=== PATIENT | female | born 1985 | race African-American/Black ===

== ENCOUNTER → 2019-08-10 08:07 | Outpatient (CLI) | payer MEDICAID, SELFPAY ==
--- NOTE | 2019-08-10 08:11 | XR_ITS ---
PROCEDURE: XR KNEE LT 4V CLINICAL INDICATION: B/L knee pain COMPARISON: No exams were available for comparison FINDINGS: No fracture or dislocation. No lytic or blastic change. There is normal mineralization. There are moderate to severe osteoarthritic changes involving the lateral compartment with mild lateral translation the tibia. Mild osteoarthritis involves the patellofemoral joint and medial compartment. Other findings:None. IMPRESSION: Moderate to severe osteoarthritis of the lateral compartment with mild osteoarthritis of the medial compartment and patellofemoral joint Dictated by: Suman Le MD 08/10/2019 12:33 Electronically signed by Suman Le MD in [place] 08/10/2019 12:33
--- NOTE | 2019-08-10 08:11 | XR_ITS ---
PROCEDURE: XR KNEE RT 4V CLINICAL INDICATION: B/L knee pain COMPARISON: No exams were available for comparison FINDINGS: No fracture or dislocation. No lytic or blastic change. There is normal mineralization. The joint spaces are well-preserved. No significant degenerative/arthritic changes. No erosive changes evident. Other findings:None. IMPRESSION: Negative right knee Dictated by: Suman Le MD 08/10/2019 12:32 Electronically signed by Suman Le MD in [place] 08/10/2019 12:32
== END ==
PROVIDERS: Visit Provider Orthopaedic Surgery
DX: M25.561 Pain in right knee (principal); M25.562 Pain in left knee
CPT/HCPCS: 73564

== ENCOUNTER 2020-03-14 01:47 | Observation (INO) | payer MEDICAID, SELFPAY ==
[2020-03-14] VITALS (27 sets, daily range): BP systolic 97–162; BP diastolic 64–98; PULSE 86–118; RESP 13–24; TEMP 36.3–43; O2SAT 95–100; BMI 32.4
--- NOTE | 2020-03-14 01:48 | PC.NURSE ---
Pt presents with sever abd pain refuses IV and refuses to Urinate
--- NOTE | 2020-03-14 02:12 | PC.NURSE ---
Pt came out of room screaming and cussing staff, stating he is going to koffi everyone and he is going to record everything we do, I explained to him we want to help, but it would be easier if we had an IV and a Urine, became very argumentive. Jasbir (Jemal) called to speak with pt and family
--- NOTE | 2020-03-14 02:14 | PC.NURSE ---
After House spoke with pt and they agreed to IV and request a martinez for urine
[2020-03-14 02:28] LABS: Basophils # 0.1 K/mm3 (0-0.2); Basophils % 0.6 % (0.1-2.0); Eosinophils # 0.1 K/mm3 (0.0-0.4); Eosinophils % 0.6 % (0.1-12.0); Hemoglobin 14.3 g/dL (12.2-16.2); Lymphocytes # 2.7 K/mm3 (0.7-4.5); Lymphocytes % 22.8 % (10-50); Mean Corpuscular HGB Conc 34.1 g/dL (31.8-35.4); Mean Corpuscular Hemoglobin 31.7 pg (27.0-31.2); Monocytes # 0.5 K/mm3 (0.1-1.0); Monocytes % 4.6 % (1.7-9.3); Neutrophils # 8.4 K/mm3 (1.8-7.8); Neutrophils % 71.5 % (37.0-80.0); Platelet Count 411 K/mm3 (142-424); Red Blood Count 4.51 M/mm3 (4.20-5.40); Red Cell Distribution Width 13.5 % (11.5-17.5); White Blood Count 11.7 K/mm3 (4.8-10.8)
[2020-03-14 02:32] LABS: Alanine Aminotransferase 68 U/L (12-78); Albumin/Globulin Ratio 1.4 (1.1-1.8); Alkaline Phosphatase 75 U/L (38-126); Amylase 45 U/L (30-110); Anion Gap 15.9 mEq/L (5-15); Aspartate Amino Transferase 64 U/L (14-36); Blood Urea Nitrogen 7 mg/dl (7-17); Calcium 10.6 mg/dl (8.4-10.2); Carbon Dioxide 24 mmol/L (22.0-30.0); Chloride 101 mmol/L (98-107); Creatinine Clearance Estimated 124 mL/min (50-200); Estimated Glomerular Filt Rate 72 ml/min (>60); GFR (African American) 87 ML/MIN (>60); Globulin 3.5 g/dL (1.3-3.2); Glucose 190 mg/dl (74-100); Lipase 47 U/L (23-300); Potassium 3.9 mmoL/L (3.5-5.1); Sodium 137 mmol/L (136-145); Total Protein,Serum 8.5 g/dl (6.3-8.2)
[2020-03-14 02:39] LABS: HCG Qualitative, Serum Positive (Negative)
--- NOTE | 2020-03-14 02:50 | US_ITS ---
PROCEDURE: US OB TRANSVAGINAL CLINICAL INDICATION: Pos preg with abd pain COMPARISON: No exams were available for comparison FINDINGS: No IUP is demonstrated. Uterus measures 7 9 millimeters x 44 millimeters x 38 millimeters. Endometrium measures a thickened 9.3 centimeters. The left ovary measures 39 millimeters x 22 millimeters x 31 millimeters. Right ovary measures 40 millimeters x 23 mm x 17 millimeters. There is a moderate amount of free echogenic fluid within the pelvis. Some fluid is seen in Morison's pouch IMPRESSION: Moderate amount of free pelvic fluid which may represent hemorrhage. Ruptured ectopic cannot be excluded Dictated by: Jey Cano 03/14/2020 08:22 Electronically signed by Jey Cano in [place] 03/14/2020 08:22
--- NOTE | 2020-03-14 03:10 | HMH.EDUROGF ---
ED Disposition Clinical Impression: Ectopic , tubal Qualifiers: Intrauterine status: unspecified Laterality: right Qualified Code(s): O00.101 - Right tubal without intrauterine Disposition: Admitted as Observation Condition on Discharge: Serious Instructions: DI for Acute Abdomen Referrals: Provider,Referral, [Primary Care Provider] - - Critical Care Critical Care Time: No Attestation: On 03/14/20, the high probability of a clinically significant, sudden or life threatening deterioration of the following system(s) required my full and direct attention, intervention and personal management. The time I documented below is in addition to time spent performing reported procedures but includes the following listed in this critical care notation. Medical Decision Making - Medical Records Medical records reviewed: Yes: I reviewed the patient's medical records. - Sky Inquiry Pt receiving controlled substance: No Vital Signs: 03/14/20 01:49 Temperature 98.1 F Temperature Source Oral Pulse Rate [Right] 109 H Respiratory Rate 20 Blood Pressure [Right Arm] 162/98 H Blood Pressure Mean [Right Arm] 119 Blood Pressure Source [Right Arm] Automatic Cuff Blood Pressure Position [Right Arm] Sitting 02 Sat by Pulse Oximetry 99 Oxygen Delivery Method Room Air - Lab Data Lab results reviewed: Yes: I reviewed the patient's lab results. Lab Results 03/14/20 02:10: Serum HCG, Qual Positive 03/14/20 02:10: WBC 11.7 H, RBC 4.51, Hgb 14.3, Hct 42.0, MCV 93.0, MCH 31.7 H, MCHC 34.1, RDW 13.5, Plt Count 411, MPV 7.0 L, Neut % (Auto) 71.5, Lymph % (Auto) 22.8, [place] % (Auto) 4.6, Eos % (Auto) 0.6, Baso % (Auto) 0.6, Neut # (Auto) 8.4 H, Lymph # (Auto) 2.7, [place] # (Auto) 0.5, Eos # (Auto) 0.1, Baso # (Auto) 0.1, ESR 9 03/14/20 02:10: Sodium 137, Potassium 3.9, Chloride 101, Carbon Dioxide 24, Anion Gap 15.9 H, BUN 7, Creatinine 0.90, Estimated Creat Clear 124, Estimated GFR 72, Est GFR ( Amer) 87, Glucose 190 H, Calcium 10.6 H, Total Bilirubin 1.0, AST 64 H, ALT 68, Alkaline Phosphatase 75, C-Reactive Protein 10.0 H, Total Protein 8.5 H, Albumin 5.0, Globulin 3.5 H, Albumin/Globulin Ratio 1.4, Amylase 45, Lipase 47 03/14/20 02:10: HCG, Quant 2483 H Result diagrams: 03/14/20 02:10 03/14/20 02:10 Orders (Tests/Meds): ED MEDICATIONS Generic Name Dose Route Start Last Admin Trade Name Freq PRN Reason Stop Dose Admin Sodium Chloride 1,000 mls @ 999 mls/hr 03/14/20 02:30 03/14/20 02:52 Sod Chlor 0.9% 1000ml Bag IV 03/14/20 03:30 999 mls/hr .Q1H1M RENEE Administration Discontinued Medications Generic Name Dose Route Start Last Admin Trade Name Freq PRN Reason Stop Dose Admin Ketorolac Tromethamine 30 mg 03/14/20 02:21 03/14/20 03:16 Toradol 30mg/Ml Vial IV 03/14/20 02:22 Not Given ONCE ONE Ondansetron HCl 4 mg 03/14/20 02:21 03/14/20 03:16 Zofran 4mg/2ml Vial IV 03/14/20 02:22 Not Given ONCE ONE ORDERS Category Date Time Status UA [Urinalysis and Microscopic] Stat Lab 03/14/20 03:11 Ordered US OB transvaginal Stat Ultrasound 03/14/20 02:50 Ordered - US Data US Images: Pelvis ED US Reviewed: Yes: I discussed the US results w/the radiologist Findings Narrative: prob ruptured ectopic rt - Physician Consults Physician Consulted: fabricio Reason -: Pt condition Female Urogenital HPI - General Chief complaint: Abdominal Pain Stated complaint: Abd Pain Time Seen by Provider: 03/14/20 02:00 Mode of Arrival: Wheelchair Source of Information: Patient, Spouse, Medical Record Limitations: No Limitations Description of Symptoms (Recalled from ER Triage Doc. by RN): Pt states she has sever abd pain in all quads, denies bleeding and discharge, states she had a tubal preg in past and they removed left fallopian tube and feels like she is having another - History of Present Illness HPI Narrative: pt with acute pelvic pain with
[2020-03-14 03:15] LABS: HCG,Quantitative 2483 mIU/ml (0-5.42)
--- NOTE | 2020-03-14 03:16 | PC.NURSE ---
I explained to pt that we got a positive test and we will be getting a U.S. Pt states she doesn't want any Narcotics because she is a recovering drug addict
[2020-03-14 03:25] LABS: Erythrocyte Sedimentation Rate 9 mm/hr (0-20)
--- NOTE | 2020-03-14 03:51 | PC.NURSE ---
Dr Vega consulting Dr Del Cid
--- NOTE | 2020-03-14 04:14 | PC.NURSE ---
was instructed to call anesthesia and or crew in for this pt...JEFFRY LINN,LISSA GUTIERREZ,AND ADI MÉNDEZ were notified.
--- NOTE | 2020-03-14 04:35 | PC.NURSE ---
Pt informed she needs to remove jewelry, Pt not wanting to remove jewelry for OR
--- NOTE | 2020-03-14 04:38 | PC.NURSE ---
Dr Del Cid at bedside
--- NOTE | 2020-03-14 04:56 | HMH.HP ---
*Admission Date: 03/14/20 *Chief complaint: abdominal pain *History of present illness: 34 yo presented to the ED with acute onset of severe abdominal pain. HCG positive upon assessment but patient was unaware of current . [facility] History I have reviewed the patient's past medical history: Yes Medical History: Reports:: Hepatitis (hep c) Denies:: Diabetes Mellitus Type 1, Diabetes Mellitus Type 2 *Have you ever received a pneumonia vaccine?: No *Have you received a flu vaccine this season?: No Other Surgeries: Yes: Other (left salpingectomy ectopic ) - *Social History Educational Level: Attended High School Smoking Status: Current every day smoker Tobacco Type: cigarettes # Packs/Day (cigarettes): 1 Alcohol Intake: never Substance Use Type: marijuana Last Used Substance: unknown *Occupational Status:: unemployed Housing: house *Travel in the last 8 weeks: None Family Hx:: No significant family history : 4 Para: 1 A: 2 LMP comments: unsure Review of Systems - Review of Systems CONSTITUTIONAL: no fever/chills HEENT: no oral lesions PULMONARY: no shortness of breath or difficulty breathing CV: no racing heart, palpitations or chest pain ABD: + abdominal pain : lochia appropriate SKIN: no new rash or skin lesions EXT: no edema NEURO: no mental status changes PSYCH: denies current anxiety/depression - *Neurologic Denies localized weakness, Denies headache(s), Denies seizure-like activity Meds Home Medications Medication Instructions Recorded Confirmed Type No Known Home Medications 03/14/20 03/14/20 History Allergies Allergy/AdvReac Type Severity Reaction Status Date / Time iodine Allergy Verified 03/14/20 05:01 From ALEVE Allergy Unknown S-SWELLS-OR Uncoded 08/10/19 08:55 AL/THROAT From Penicillin G Sodium Allergy Unknown Uncoded 08/10/19 08:55 Penicillin Allergy Unknown Uncoded 08/10/19 08:55 Exam Vital signs and Labs for Last 24 Hours: Temp Pulse Resp BP Pulse Ox 98.6 F 104 H 16 108/72 L 99 03/14/20 04:52 03/14/20 04:52 03/14/20 04:52 03/14/20 04:52 03/14/20 04:05 Laboratory Results - last 24 hr 03/14/20 02:10: Serum HCG, Qual Positive 03/14/20 02:10: WBC 11.7 H, RBC 4.51, Hgb 14.3, Hct 42.0, MCV 93.0, MCH 31.7 H, MCHC 34.1, RDW 13.5, Plt Count 411, MPV 7.0 L, Neut % (Auto) 71.5, Lymph % (Auto) 22.8, [place] % (Auto) 4.6, Eos % (Auto) 0.6, Baso % (Auto) 0.6, Neut # (Auto) 8.4 H, Lymph # (Auto) 2.7, [place] # (Auto) 0.5, Eos # (Auto) 0.1, Baso # (Auto) 0.1, ESR 9 03/14/20 02:10: Sodium 137, Potassium 3.9, Chloride 101, Carbon Dioxide 24, Anion Gap 15.9 H, BUN 7, Creatinine 0.90, Estimated Creat Clear 124, Estimated GFR 72, Est GFR ( Amer) 87, Glucose 190 H, Calcium 10.6 H, Total Bilirubin 1.0, AST 64 H, ALT 68, Alkaline Phosphatase 75, C-Reactive Protein 10.0 H, Total Protein 8.5 H, Albumin 5.0, Globulin 3.5 H, Albumin/Globulin Ratio 1.4, Amylase 45, Lipase 47 03/14/20 02:10: HCG, Quant 2483 H 03/14/20 04:25: Crossmatch (AHG) See Detail I & O for Last 24 hours: Intake & Output 03/11/20 03/12/20 03/13/20 03/14/20 11:59 11:59 11:59 11:59 Intake Total 1000 / 1000 Balance 1000 / 1000 Weight 195 lb Narrative: CONSTITUTIONAL: visibly uncomfortable HEENT: mucous membranes moist PULMONARY: breathing unlabored without audible wheezes CV: + tachycardia; normal LE peripheral pulses ABD: soft, non-distended. + tender : deferred SKIN: no visible rash or lesions HEME: no lymphadenopathy EXT: no edema LEs NEURO: alert/oriented, no altered mental status PSYCH: anxious Assessment and Plan (1) Ectopic , tubal Current visit: Yes Status: Acute Qualifiers: Intrauterine status: unspecified Laterality: right Qualified Code(s): O00.101 - Right tubal without intrauterine Category: Medical Code(s): O00.109 - Unspecified tubal without intra
[2020-03-14 05:34] LABS: Microscopic, Urine URINE MICROSCOPIC (MICROSCOPIC)
[2020-03-14 05:36] LABS: Appearance,Urine CLEAR (Clear); Blood, Urine Negative (Negative); Glucose,Urine (UA) Negative (Negative); Ketones,Urine 1+ (Negative); Leukocyte Esterase,Urine Negative (Negative); Nitrate,Urine Negative (Negative); Protein,Urine TRACE (Negative); Specific Gravity, Urine >= 1.030 (1.005-1.030)
[2020-03-14 05:40] LABS: Bilirubin,Urine Negative (Negative); Color,Urine Dark Yellow (Yellow)
[2020-03-14 05:55] LABS: Bacteria,Urine 1+ /lpf; Mucus,Urine 1+ /lpf
[2020-03-14 06:06] LABS: Barbiturates Screen,Urine Negative ng/ml (<200); Benzodiazepines Screen,Urine Negative ng/ml (<200); Cannabinoid Screen,Urine Positive ng/ml (<50); Cocaine Screen,Urine Negative ng/ml (<300); Methadone Screen,Urine Negative ng/ml (<300); Opiate Screen,Urine Positive ng/ml (<300); Phencyclidine Screen,Urine Negative ng/ml (<25)
--- NOTE | 2020-03-14 06:12 | SUR.OPER ---
0455- unpon entering or pt has 3 facial piercings in. Pt explained in detail the risk for page/ aspiration. Pt states that piercings do not come out except with pliers. Pt understands risks.
--- NOTE | 2020-03-14 07:24 | HMH.ANESCL ---
[facility] Anesthesia Checklist - Patient Identification Patient Identification: Arm Band, Verbal (Name & ) - Structural Data Admitted From: Emergency Dept Planned Operative Procedure/s: Diagnostic laparoscopy Consent for Planned Operative Procedure(s) Verified: Yes Verified Documents: Surgical Consent, History and Physical - NPO Status Verified Time NPO: 00:00 - Chart Verification Results Verified: CBC, BMP, UA (UDS), HCG - Additional verifications Patient : Yes Anesthesia Reactions: No - Airway Assessment C-Spine Mobility Assessed: Yes TMJ Mobility Assessed: Yes Dentition: Good Dentition (missing tooth) - Neurological Assessment Level of Consciousness: Awake, Alert, Appropriate, Follows Commands, Restless Hx Seizures: No Numbness or tingling in extremities: No - Anesthesia Plan Anesthesia Risk discussed: Yes Anesthesia Plan: Verified ASA Class: III (Emergent) Anesthesia Type: General [facility] History I have reviewed the patient's past medical history: Yes Medical History: Reports:: Hepatitis (hep c) Denies:: Diabetes Mellitus Type 1, Diabetes Mellitus Type 2 *Have you ever received a pneumonia vaccine?: No *Have you received a flu vaccine this season?: No Comment:: obesity Anesthesia experience/problems:: No complications Other Surgeries: Yes: Other (left salpingectomy ectopic ) Amputation: No Fractures: No - *Social History Educational Level: Attended High School Smoking Status: Current every day smoker Tobacco Type: cigarettes # Packs/Day (cigarettes): 1 Alcohol Intake: never Substance Use Type: marijuana Last Used Substance: unknown *Occupational Status:: unemployed Housing: house *Travel in the last 8 weeks: None Family Hx:: No significant family history Para: 1 A: 2 LMP comments: unsure
--- NOTE | 2020-03-14 07:27 | HMH.ANESI ---
[facility] Anesthesia Record Part I Intake, IV Amount: 1,600 Estimated blood loss (mL): 800 Urine output (mL): 0 (NM) Blood Products used (#): none Blood Pressure: 161/82 SaO2: 96 Pulse Rate: 104 Respiratory Rate: 22 Temperature: 97.3 F Patient is:: Awake, Drowsy, Stable Stable to PACU at:: 07:17
--- NOTE | 2020-03-14 07:34 | HMH.OPNOTE ---
Date of procedure: 03/14/20 Pre-op Diagnosis:: 1. Large hemoperitoneum 2. Suspected ectopic 3. Previous ectopic Post-op Diagnosis:: 1. Large hemoperitoneum 2. Ruptured ectopic left fallopian tube 3. Pelvic adhesions Procedure performed:: 1. Diagnostic laparoscopy 2. Ligation of left fallopian tube 3. Lysis of adhesions Surgeon:: Carlie Del Cid MD FRIT MIXER:: Bennett Knight Anesthesia: GETA Estimated blood loss (mL): 800 Operative findings:: Large hemoperitoneum Active bleeding from promimal left fallopian tube at junction to uterus Pelvic adhesions Absent right fallopian tube Operative note:: The patient was taken to the operating room and general anesthesia was administered. She was prepped/draped in lithotomy position. A Humi uterine manipulator was placed without difficulty. Gloves were changed and attention was turned to the abdomen. A 5mm skin incision was made in the umbilical fold and the verees needle was inserted through the peritoneum and into the abdominal cavity in standard fashion. The abdomen was insufflated with CO2 gas. A 5mm non-bladed trocar was inserted directly into the abdominal cavity and appropriate placement was confirmed with the laparoscope. No intra-abdominal injuries occurred during entry into the abdominal cavity, as confirmed visually with the laparoscope. Initial assessent of the abdomen/pelvis revealed a large amount of hemoperitoneum but the source of the bleeding was not immediately apparent. The patient was placed in trendelenburg and a 12mm skin incision was made 2cm above the pubic symphysis. A 12mm non-bladed trocar was inserted under direct visualization, without complication. A survey of the pelvis and abdomen revealed a moderate/large amount of hemoperitoneum, both clot and active bleeding. Suction was used to evacuate the blood and the uterus was elevated out of the pelvis to better visualize the anatomy. A 5mm skin incision was made in the left lower quadrant and a non-bladed trocar was inserted under direct visualization, without complication. The ovaries both appeared normal. The right fallopian tube was absent. A small stump of left fallopian tube was actively bleeding at it's connection to the uterine fundus, but was completely from the remainder of the tube. The distal end of the fallopian tube was not bleeding and did not appear to be involved in the rupture, indicating a previous left salpingectomy with the ectopic in the proximal portion of the tube. The harmonic scalpel was used to ligate and cauterize the bleeding from the proximal fallopian tube. There was bleeding from the uterus as well and required ligation through the round ligament and broad ligament to stop this bleeding. Adhesions from omentum to the right fundus of the uterus were then taken down sharply in order to assess the anatomy on the right side. The right ovary appeared normal but there was no right fallopian tube present. The abdomen and pelvis were copiously irrigated and all clot/debris removed. The left pedicle was observed off tension and remained hemostatic. Surgicel was placed over the denuded portion of the uterine fundus on the left. The abdomen was then evacuated of gas and all trocars removed. The fascia of the 12mm suprapubic incision was closed with 0-vicryl and the skin was closed with 4-0 monocryl. The umbilical and RLQ skin incisions were closed with dermabond. All sponge/lap/needle/instrument counts correct for both abdominal and vaginal procedures. Total EBL: 800cc. The patient was taken out of lithotomy position, extubated and taken to the PACU in stable condition. Condition: stable Disposition: PACU Specimens:: none Complications:: none
[2020-03-14 07:56] LABS: Basophils % 0.1 % (0.1-2.0); Eosinophils # 0.1 K/mm3 (0.0-0.4); Eosinophils % 0.9 % (0.1-12.0); Hematocrit 35.3 % (37.0-47.0); Lymphocytes # 0.8 K/mm3 (0.7-4.5); Lymphocytes % 9.4 % (10-50); Mean Corpuscular Hemoglobin 31.3 pg (27.0-31.2); Mean Corpuscular Volume 94.8 fl (81-99); Mean Platelet Volume 7.1 fl (7.4-10.4); Monocytes # 0.2 K/mm3 (0.1-1.0); Monocytes % 2.7 % (1.7-9.3); Neutrophils # 7.4 K/mm3 (1.8-7.8); Platelet Count 303 K/mm3 (142-424); Red Blood Count 3.72 M/mm3 (4.20-5.40); Red Cell Distribution Width 13.5 % (11.5-17.5); White Blood Count 8.5 K/mm3 (4.8-10.8)
[2020-03-14 08:01] LABS: MANUAL DIFFERENTIAL MANUAL DIFFERENTIAL (MANUAL DIFF)
[2020-03-14 08:40] LABS: Lymphocytes % 10 % (10-50); Monocytes % 3 % (2-9); Neutrophils % 87 % (42-76); Platelet Estimate Normal; RBC Morphology Normal; Total Cells Counted 100
[2020-03-14 08:42] LABS: Hemoglobin 11.7 g/dL (12.2-16.2)
--- NOTE | 2020-03-14 11:31 | PC.NURSE ---
PT AWAKE AT THIS TIME. REQUESTING TO EAT. JELLO PROVIDED. CALL LIGHT WITHIN REACH. PT SITTING UP IN BED WATCHING TV TALKING WITH SPOUSE, NO FURTHER NEEDS AT THIS TIME
--- NOTE | 2020-03-14 11:55 | PC.NURSE ---
dr. regalado in dept to see pt, updated at this time. vital signs reviewed. at bedside at this time
--- NOTE | 2020-03-14 12:06 | PC.NURSE ---
DR. ZHAO ROUNDED ON PT, ASSESSMENT COMPLETED, WILL DISCHARGE PT HOME LATER AFTER 1500 H&H. VERBAL ORDER FOR REGULAR DIET. QUESTIONS ANSWERED BY DR. ZHAO. PT V/U
--- NOTE | 2020-03-14 13:17 | HMH.DCSUM ---
General - General Admission date:: 03/14/20 Discharge date: 03/14/20 HPI HPI: 34 yo presented to the ED with acute onset of severe abdominal pain. HCG positive upon assessment but patient was unaware of current . Hospital Course Hospital Course: The patient was evaluated in the ED with acute abdominal pain and positive test. Ultrasound showed large amount of hemoperitoneum and she was taken to the OR for presumed ruptured ectopic . She had a laparoscopic ligation of left fallopian tube and lysis of adhesions which was uncomplicated. She was admitted for short term observation and serial labs in the context of such a significant blood loss. Hgb stable 11.3 and vital signs are stable. Rhogam Administration: Not Indicated Objective Vital signs: Temp Pulse Resp BP Pulse Ox 98.1 F 96 H 17 137/67 100 03/14/20 12:15 03/14/20 12:15 03/14/20 12:15 03/14/20 12:15 03/14/20 12:15 Narrative: CONSTITUTIONAL: no acute distress HEENT: mucous membranes moist PULMONARY: breathing unlabored without audible wheezes CV: no tachycardia or visible JVD; normal LE peripheral pulses ABD: soft, ND; appropriately tender but no rebound/guarding SKIN: incision well approximated with no drainage, erythema or induration EXT: no edema LEs NEURO: alert/oriented, no altered mental status PSYCH: appropriate mood and demeanor without anxiety/depression Results Labs on day of discharge: Labs from last 24 hours 03/14/20 03/14/20 03/14/20 07:45 07:45 05:05 WBC 8.5 D RBC 3.72 L Hgb 11.7 L D Hct 35.3 L MCV 94.8 MCH 31.3 H MCHC 33.0 RDW 13.5 Plt Count 303 D MPV 7.1 L Neut % (Auto) 87.0 H Lymph % (Auto) 9.4 L [place] % (Auto) 2.7 Eos % (Auto) 0.9 Baso % (Auto) 0.1 Neut # (Auto) 7.4 Lymph # (Auto) 0.8 [place] # (Auto) 0.2 Eos # (Auto) 0.1 Baso # (Auto) 0.0 Total Counted 100 Neutrophils % (Manual) 87 H Lymphocytes % (Manual) 10 Monocytes % (Manual) 3 Platelet Estimate Normal RBC Morphology Normal ESR Sodium Potassium Chloride Carbon Dioxide Anion Gap BUN Creatinine Estimated Creat Clear Estimated GFR Est GFR ( Amer) Glucose Calcium Total Bilirubin AST ALT Alkaline Phosphatase C-Reactive Protein Total Protein Albumin Globulin Albumin/Globulin Ratio Amylase Lipase Serum HCG, Qual HCG, Quant Urine Color Urine Appearance Urine pH Ur Specific [place] Urine Protein Urine Glucose (UA) Urine Ketones Urine Blood Urine Nitrate Urine Bilirubin Urine Urobilinogen Ur Leukocyte Esterase Urine WBC Urine Bacteria Urine Mucus Urine Opiates Screen Positive H Urine Methadone Screen Negative Ur Barbituates Screen Negative Ur Phencyclidine Scrn Negative Ur Amphetamines Screen Therapeutic Assistant U Benzodiazepines Scrn Negative Urine Cocaine Screen Negative U Marijuana (THC) Screen Positive H Blood Type Blood Type Confirm O Positive Antibody Screen Crossmatch (AHG) 03/14/20 03/14/20 03/14/20 05:05 04:25 02:10 WBC RBC Hgb Hct MCV MCH MCHC RDW Plt Count MPV Neut % (Auto) Lymph % (Auto) [place] % (Auto) Eos % (Auto) Baso % (Auto) Neut # (Auto) Lymph # (Auto) [place] # (Auto) Eos # (Auto) Baso # (Auto) Total Counted Neutrophils % (Manual) Lymphocytes % (Manual) Monocytes % (Manual) Platelet Estimate RBC Morphology ESR Sodium Potassium Chloride Carbon Dioxide Anion Gap BUN Creatinine Estimated Creat Clear Estimated GFR Est GFR ( Amer) Glucose Calcium Total Bilirubin AST ALT Alkaline Phosphatase C-Reactive Protein Total Protein Albumin Globulin Albumin/Globul
--- NOTE | 2020-03-14 13:54 | PC.NURSE ---
pt assisted to bathroom and to shower at this time. assisted
[2020-03-14 15:24] LABS: Hematocrit 27.5 % (37.0-47.0)
[2020-03-14 15:31] LABS: Hemoglobin 9.6 g/dL (12.2-16.2)
--- NOTE | 2020-03-14 15:35 | PC.NURSE ---
H&H RESULTS REPORTED TO DR. ZHAO, UPDATED THAT PT HAS SHOWERED, TOLERATED REGULAR DIET, PAIN WELL CONTROLLED AND VSS. WAITING FOR PT TO VOID SINCE F/C REMOVED. PLAN TO DISCHARGE PT AFTER VOIDING. NO NEW ORDERS AT THIS TIME. PT TO FOLLOW-UP IN 1 WEEK
[2020-03-18 22:07] LABS: Amphetamine Positive (.); Amphetamines Positive (.); Methamphetamine Positive (.)
[2020-03-19 04:46] LABS: Amphetamine (GC/MS) 7330 ng/mL (Cutoff=500); Methamphetamine (GC/MS) >4000 ng/mL (Cutoff=500)
--- NOTE | 2020-03-19 09:49 | HMH.ANESII ---
[facility] Anesthesia Record Part II Discharge Time: 07:47 Destination: floor PACU nurse assessment reviewed?: Yes Patient Condition:: Good Anesthesia Complications:: None Swallowing reflex intact?: Yes Cyanosis?: No Blood Pressure: 123/75 Pulse Rate: 90 Temperature: 98.0 F Mental Status: Alert & Oriented Pain level:: 5 Nausea and/or vomitting:: None Intake, IV Amount: 1,000
[2020-03-19 09:50] VITALS: BP 123/75; PULSE 90; TEMP 36.7
== END 2020-03-14 16:10 | disposition home or self-care (01) ==
LOC: ER 04:08 → OR 04:47 → OB 07:00
PROVIDERS: Admitting Provider Obstetrics & Gynecology; Emergency Provider Emergency Medicine; Visit Provider Obstetrics & Gynecology
PROC: (CPT 49320; principal; 2020-03-14 05:30)
DX: O00.102 Left tubal pregnancy without intrauterine pregnancy (principal); B19.20 Unspecified viral hepatitis C without hepatic coma; K66.1 Hemoperitoneum
CPT/HCPCS: 59151; 36415; 76817; 80053; 80305; 80324; 81001; 82150; 83690; 84702; 84703; 85007; 85014; 85018; 85025; 85651; 86140; 86850; 96365; 96375; 99284; G0378; J0131; J2405; J2710

== ENCOUNTER 2020-04-14 14:25 | Emergency (ER) | payer MEDICAID, SELFPAY ==
[2020-04-14 14:54] VITALS: BP 116/83; PULSE 84; RESP 17; TEMP 36.7; O2SAT 100; BMI 32.4
[2020-04-14 15:05] VITALS: BP 116/83; PULSE 84; RESP 17; TEMP 36.7; O2SAT 100
--- NOTE | 2020-04-14 15:23 | PC.NURSE ---
PT TRANSPORTED [facility] TO [facility]ENT)
--- NOTE | 2020-04-14 15:36 | HMH.EDUTC ---
[facility] [place] Clinical Impression: Foreign body Disposition: Left Against Medical Advice Condition on Discharge: Good Referrals: PCP,No [Primary Care Provider] - Time of Disposition: 15:25 Medical Decision Making - Sky Inquiry Pt receiving controlled substance: No Vital Signs: 04/14/20 14:54 04/14/20 15:05 Temperature 98.1 F 98.1 F Temperature Source Oral Oral Pulse Rate 84 Pulse Rate [Left] 84 Respiratory Rate 17 17 Blood Pressure 116/83 Blood Pressure [Right Arm] 116/83 Blood Pressure Mean [Right Arm] 94 Blood Pressure Source [Right Arm] Automatic Cuff Blood Pressure Position Sitting Blood Pressure Position [Right Arm] Sitting 02 Sat by Pulse Oximetry 100 Oxygen Delivery Method Room Air - Physician Consults Physician Consulted: cortney Time: 15:15 Comment/Response: while flushing ear pt jumped up started hitting the side of her head, yelling at me stating she needs a dr. I asked her to sit down and let me look into her ear and she contiuned to bang head. I called [facility] office and they said to send pt down and he would look at it. while I was on the phone the pt was yelling that She is fucking stupid, she doesnt know what she is doing. and yelling she needs a dr. I asked staff to call housekeeping associate to talk to pt. I went back in to let pt and spouse know barr was going to see her because if she can not sit still I did not feel comfortable placing a instrument in the ear to get bug. Pt again started yelling at me calling me stupid and states she needs a fucking dr. and then the neli started yelling You googled how to remove a bug and you do not know what the hell your doing and if her ear was damaged he was sueing, then she yellled stating she is getting a plaster form maker. He then asked where barr was and I told him if they would calm down and listen I was trying to explain where they needed to go. they walked out with staff as they are yelling and calling me names. billie informed [facility] [place] - General Chief complaint: [facility] Stated complaint: sousa crawled in R ear Time Seen by Provider: 04/14/20 15:05 Mode of Arrival: Ambulatory Source of Information: Patient Limitations: No Limitations Description of Symptoms (Recalled from Triage Doc. by RN): Pt states a sousa crawled in her right ear HEENT Symptoms (Recalled from RN notes): Yes Resp Symptoms (Recalled from RN notes): No Skin Symptoms (Recalled from RN notes): No MS Symptoms (Recalled from RN notes): No Functional Status (Recalled from RN notes): stable - History of Present Illness Provider Complaint: 34 yr old female presents for a sousa in rt ear. Pt states its been in there for about 30 mins. - Related Data Previous Rx's Medication Instructions Recorded Acetaminophen [Acetaminophen 325mg 650 mg PO Q4HP PRN tab 03/14/20 tab] Allergies Allergy/AdvReac Type Severity Reaction Status Date / Time ibuprofen [From Advil] Allergy Mild Verified 04/14/20 15:20 Penicillins Allergy Mild Verified 04/14/20 15:20 - Worker's Comp Is this a Worker's Comp case?: No Is this an H Worker's Comp?: No Is this a Jet Worker's Comp?: No [facility] History - Hepatitis A Screen Drug use history?: No High risk sexual behaviors?: No History of sexually transmitted infection?: No Currently employed?: No Childcare worker?: No Do you have indoor plumbing?: Yes Do you have electricity?: Yes Attestation statement:: This patient has been screened for Hepatitis A risk factors. 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 No: Pacemaker Amputation: No Fractures: No - Social History Smoking Status: Current every day smoker Tobacco Type: cigarettes # Packs/Day (
== END 2020-04-14 15:42 | disposition left against medical advice (07) ==
PROVIDERS: Emergency Provider Nurse Practitioner Family
DX: T16.1XXA Foreign body in right ear, initial encounter (principal); Z88.0 Allergy status to penicillin; F12.10 Cannabis abuse, uncomplicated; F19.90 Other psychoactive substance use, unspecified, uncomplicated; F21 Schizotypal disorder
CPT/HCPCS: 99201

== ENCOUNTER → 2020-04-14 16:40 | Outpatient (CLI) | payer MEDICAID, SELFPAY ==
--- NOTE | 2020-04-14 17:03 | ECG_ITS ---
APPROVED REPORT Exam: Resting ECG HR:95 bpm ECG Measurements Heart Rate 95 AXES MA 144 P 53 QRSd 124 QRS -22 QT 388 T 17 QTc 487 <Conclusion> Normal sinus rhythm Possible Left atrial enlargement Right bundle branch block Abnormal ECG Electronically signed by : Carlo Thompson, 04/15/2020 13:50:08
[2020-04-14 17:26] LABS: Basophils % 0.4 % (0.1-2.0); Eosinophils % 0.4 % (0.1-12.0); Hemoglobin 13.2 g/dL (12.2-16.2); Lymphocytes # 1.5 K/mm3 (0.7-4.5); Lymphocytes % 15.5 % (10-50); Mean Corpuscular HGB Conc 33.1 g/dL (31.8-35.4); Mean Corpuscular Hemoglobin 30.5 pg (27.0-31.2); Mean Corpuscular Volume 92.1 fl (81-99); Mean Platelet Volume 7.2 fl (7.4-10.4); Monocytes # 0.4 K/mm3 (0.1-1.0); Monocytes % 4.5 % (1.7-9.3); Neutrophils # 7.6 K/mm3 (1.8-7.8); Neutrophils % 79.4 % (37.0-80.0); Platelet Count 360 K/mm3 (142-424); Red Blood Count 4.34 M/mm3 (4.20-5.40); Red Cell Distribution Width 13.6 % (11.5-17.5); White Blood Count 9.6 K/mm3 (4.8-10.8)
[2020-04-14 20:14] LABS: Coronavirus 19 IgG Antibody Negative (Negative); Coronavirus 19 IgM Antibody Negative (Negative)
== END ==
PROVIDERS: Visit Provider Otolaryngology
DX: Z01.818 Encounter for other preprocedural examination (principal); T16.1XXA Foreign body in right ear, initial encounter
CPT/HCPCS: 36415; 85025; 86328; 93005

== ENCOUNTER 2020-04-15 10:07 | Day surgery (SDC) | payer MEDICAID, SELFPAY ==
[2020-04-15] VITALS (10 sets, daily range): BP systolic 104–135; BP diastolic 67–97; PULSE 65–90; RESP 12–18; TEMP 36.4–36.8; O2SAT 95–100; BMI 31.2
[2020-04-15 11:05] LABS: HCG Qualitative, Serum Negative (Negative)
--- NOTE | 2020-04-15 11:57 | HMH.ANESCL ---
[facility] Anesthesia Checklist - Structural Data Admitted From: Home Planned Operative Procedure/s: foreign body r ear Consent for Planned Operative Procedure(s) Verified: Yes - Additional verifications Anesthesia Reactions: No Hx Blood Transfusions: Yes Blood Transfusion Reaction: No - Airway Assessment C-Spine Mobility Assessed: Yes TMJ Mobility Assessed: Yes Dentition: Good Dentition - Neurological Assessment Level of Consciousness: Awake, Alert, Appropriate - Anesthesia Plan Anesthesia Risk discussed: Yes Anesthesia Plan: Verified ASA Class: II Anesthesia Type: General [facility] History I have reviewed the patient's past medical history: Yes Medical History: Reports:: Hepatitis Denies:: Cancer, Diabetes Mellitus Type 1, Diabetes Mellitus Type 2, Internal Pacemaker, MRSA, Seizures *Have you ever received a pneumonia vaccine?: No *Have you received a flu vaccine this season?: No Other Medical History: Denies: Blood Transfusion Reaction Anesthesia experience/problems:: none Other Surgeries: Yes: Dilation and Curettage, Other (laparoscopic salpingectomy). No: Pacemaker Amputation: No Fractures: No - *Social History Last grade of school completed: High school graduate Smoking Status: Current every day smoker Tobacco Type: cigarettes # Packs/Day (cigarettes): 1 Alcohol Intake: never Substance Use Type: marijuana, amphetamines *Occupational Status:: unemployed Housing: house Household Members: spouse *Travel in the last 8 weeks: None Family Hx:: No significant family history
--- NOTE | 2020-04-15 11:58 | HMH.ANESI ---
[facility] Anesthesia Record Part I Intake, IV Amount: 500 Estimated blood loss (mL): 0 Urine output (mL): 0 Blood Pressure: 124/86 SaO2: 95 Pulse Rate: 90 Respiratory Rate: 12 Temperature: 97.5 F Patient is:: Awake, Stable Stable to PACU at:: 11:55
--- NOTE | 2020-04-16 06:59 | P.PN_ITS ---
[facility] Anesthesia Record Part II Discharge Time: 12:35 Destination: Surgical Day Care (OP Surgery) PACU nurse assessment reviewed?: Yes Patient Condition:: Good Anesthesia Complications:: None Swallowing reflex intact?: Yes Cyanosis?: No Blood Pressure: 112/80 Pulse Rate: 72 Temperature: 98 F Mental Status: Alert & Oriented Pain level:: 0 Nausea and/or vomitting:: None Intake, IV Amount: 0
[2020-04-16 07:00] VITALS: BP 112/80; PULSE 72; TEMP 36.6
--- NOTE | 2020-04-17 12:48 | P.OP_ITS ---
Date of procedure: 04/17/20 Pre-op Diagnosis:: 1. Foreign body right ear insect sousa Post-op Diagnosis:: Same Procedure performed:: Removal of foreign body right ear under general anesthetic Surgeon:: Adarsh Perla MD [employer] DEVELOPMENT MANAGER:: Bennett Knight Anesthesia: GETA Estimated blood loss (mL): 0 Operative findings:: Same Operative note:: With the patient under general anesthesia the right ear was prepped and draped. Using the operating microscope for all the procedure the right ear was irrigated and all of the debris was cleared. There was a insect impacted in the right anterior meatal recess of the ear canal. Using the alligator forceps the insect was removed atraumatically. There were 2 remaining insect legs sitting on the t ympanic membrane and they were removed atraumatically using the alligator forceps as well. The ear was thoroughly irrigated with saline. The tympanic membrane was intact and aside from some abrasions in the ear canal there were no other abnormalities. Ciprodex drops were applied and the patient was sent to recovery in good general condition. Condition: stable Disposition: PACU Complications:: None
== END 2020-04-15 13:11 | disposition home or self-care (01) ==
LOC: OR 10:08
PROVIDERS: Visit Provider Otolaryngology
PROC: (CPT 69205; principal; 2020-04-15 11:30)
DX: T16.1XXA Foreign body in right ear, initial encounter (principal); B19.20 Unspecified viral hepatitis C without hepatic coma; Z90.79 Acquired absence of other genital organ(s); Z72.0 Tobacco use; F12.90 Cannabis use, unspecified, uncomplicated; F15.90 Other stimulant use, unspecified, uncomplicated; Z88.0 Allergy status to penicillin; Z88.6 Allergy status to analgesic agent; Z86.14 Personal history of Methicillin resistant Staphylococcus aureus infection
CPT/HCPCS: 69205; 84703; 96374; 96375

== ENCOUNTER 2020-06-07 17:25 | Emergency (ER) | payer MEDICAID, SELFPAY ==
[2020-06-07 17:25] VITALS: BP 166/110; PULSE 105; RESP 18; TEMP 36.8; O2SAT 100; BMI 26.6
--- NOTE | 2020-06-07 17:27 | HMH.EDGENADL ---
ED Disposition Clinical Impression: Toothache, Dental caries Disposition: Home, Self-Care Condition on Discharge: Good Instructions: DI for Dental Pain Additional Instructions: Take antibiotics as prescribed. Follow-up with dental clinic as discussed. If you have any new, changing, worsening, or concerning symptoms, come back to the emergency department. Prescriptions: Clindamycin HCl 450 mg PO TID 7 Days #63 cap Transmission Status: Pending to [facility] Referrals: PCP,No [Primary Care Provider] - Time of Disposition: 18:09 - Critical Care Critical Care Time: No Attestation: On , the high probability of a clinically significant, sudden or life threatening deterioration of the following system(s) required my full and direct attention, intervention and personal management. The time I documented below is in addition to time spent performing reported procedures but includes the following listed in this critical care notation. Medical Decision Making - Medical Records Medical records reviewed: Yes: I reviewed the patient's medical records. MR Comment: 34-year-old female presents emergency department with toothache. She arrives the ED hemodynamically stable, with reassuring vital signs, and looks well on exam. Clinically, there are no signs of drainable abscess around the tooth and the posterior pharynx appears normal. She has not been on any antibiotics recently. She has poor dentition and likely has a periapical abscess of the tooth, it is tender to tap. Will treat with antibiotics and pain medication and reassess. On reassessment, Patient remains well. Advised that she take her antibiotics and follow-up with dental clinic as quickly as possible. She was given information about the urgent dental clinic as she states she does not have a dentist. She was given strict return precautions and discharge instructions and verbalized understanding and agreement to the plan. Safe to discharge. - Sky Inquiry Pt receiving controlled substance: No Vital Signs: 06/07/20 17:25 Temperature 98.2 F Temperature Source Oral Pulse Rate [Right] 105 H Respiratory Rate 18 Blood Pressure [Right Arm] 166/110 H Blood Pressure Mean [Right Arm] 128 02 Sat by Pulse Oximetry 100 Orders (Tests/Meds): ED MEDICATIONS Discontinued Medications Generic Name Dose Route Start Last Admin Trade Name Freq PRN Reason Stop Dose Admin Hydrocodone Bitart/Acetaminophen 2 tab 06/07/20 17:35 06/07/20 17:45 Bertha 10/325mg Tablet PO 06/07/20 17:36 2 tab ONCE ONE Administration Clindamycin HCl 450 mg 06/07/20 17:35 06/07/20 17:45 Cleocin 150mg Capsule PO 06/07/20 17:36 450 mg ONCE ONE Administration Protocol Lorazepam 1 mg 06/07/20 18:01 Ativan 1mg Tablet PO 06/07/20 18:02 ONCE ONE General Adult HPI - General Chief complaint: Dental/Oral Stated complaint: dental pain Time Seen by Provider: 06/07/20 17:28 - History of Present Illness HPI narrative: 34yo F who denies any past medical history presents emergency department with left sided upper tooth pain. States that she has not been in the dentist and has had toothache on and off for some time but today it is been worse. She denies any fever or chills. She has been eating and drinking without any difficulties. She has no recent illnesses. She denies any headache or throat pain. She denies any neck pain. She denies any other symptoms or concerns at this time. - Related Data Previous Rx's Medication Instructions Recorded duloxetine 30 mg capsule,delayed 30 mg PO DAILY #30 cap 04/30/20 release lamotrigine 100 mg tablet 100 mg PO BID #60 tab 04/30/20 lamotrigine 25 mg tablet 25 mg PO DAILY #120 tab 04/30/20 Clindamycin HCl 450 mg PO TID 7 Days #63 cap 06/07/20 Allergies Allergy/AdvReac Type Severity Reaction Status Date / Time ibuprofen [From Advil] Allergy Mild Verified 04/30/20 10:04 Penicillins Allergy Mild V
--- NOTE | 2020-06-07 18:35 | PC.NURSE ---
Addendum entered by Aida Ann RN 06/07/20 18:36: Message left, pt states she has no one else to come get her and does not know of any numbers to call Original Note: ATTEMPTED TO CALL PT < WENT STRAIGHT TO VOICE MAIL
[2020-06-07 19:07] VITALS: BP 123/85; PULSE 80; RESP 18; TEMP 36.8; O2SAT 100
--- NOTE | 2020-06-25 09:54 | PC.NURSE ---
Dr. Dasilva (dentist) called at this time states he has seen pt and was able to get her teeth out. Asked me to make a note.
== END 2020-06-07 19:08 | disposition home or self-care (01) ==
PROVIDERS: Emergency Provider Emergency Medicine
DX: K08.89 Other specified disorders of teeth and supporting structures (principal); F25.0 Schizoaffective disorder, bipolar type; F31.9 Bipolar disorder, unspecified; F17.210 Nicotine dependence, cigarettes, uncomplicated; Z88.0 Allergy status to penicillin
CPT/HCPCS: 99281

== ENCOUNTER 2020-07-18 20:53 | Emergency (ER) | payer MEDICAID, SELFPAY ==
[2020-07-18 20:55] VITALS: BP 149/98; PULSE 100; RESP 18; TEMP 37.2; O2SAT 99; BMI 28.3
[2020-07-18 21:40] LABS: Microscopic, Urine URINE MICROSCOPIC (MICROSCOPIC)
--- NOTE | 2020-07-18 21:41 | CT_ITS ---
PROCEDURE: CT ABDOMEN PELVIS WO CON CLINICAL INDICATION: N/V/D nausea, vomiting, diarrhea. Patient feels she has parasitic infection COMPARISON: CT ABDPELW/O CT ABD PELVIS W/O CONTRAST from 12/08/2012 TECHNIQUE: Axial images obtained with sagittal and coronal reformats. All CT scans at the facility use one or more dose reduction, viz: automated exposure control, ma/kV adjustment per patient size (including targeted exams where dose is matched to indication, i.e. head), or iterative reconstruction technique. FINDINGS: LOWER THORAX: No acute finding ABDOMEN & PELVIS: The liver, spleen, adrenal glands, pancreas, have an unremarkable appearance. No radiopaque gallstones. There is a 3 mm nonobstructing stone in the upper pole of the left kidney. There is a small umbilical hernia containing fat. Unremarkable appendix. There is a moderate amount of retained colonic feces. No intestinal obstruction or free air. No acute bony findings. IMPRESSION: Nonobstructing 3 mm stone in the upper pole of the left kidney. Mild amount of retained colonic feces Otherwise negative with no acute finding. Dictated by: Suman Le MD 07/19/2020 09:54 Suman Le MD in [place] 07/19/2020 09:54
[2020-07-18 21:44] LABS: Appearance,Urine CLEAR (Clear); Bilirubin,Urine Negative (Negative); Blood, Urine Negative (Negative); Color,Urine YELLOW (Yellow); Glucose,Urine (UA) Negative (Negative); Ketones,Urine Negative (Negative); Leukocyte Esterase,Urine Negative (Negative); Nitrate,Urine Negative (Negative); PH,Urine 6.5 (5.0-8.5); Protein,Urine Negative (Negative); Urobilinogen,Urine 0.2 EU/dl (0.2)
[2020-07-18 21:53] VITALS: BP 141/95; PULSE 80; RESP 18; O2SAT 100
[2020-07-18 21:55] LABS: Barbiturates Screen,Urine Negative ng/ml (<200); Benzodiazepines Screen,Urine Negative ng/ml (<200)
[2020-07-18 21:56] LABS: Amphetamine/Metha Screen,Urine Negative ng/ml (<1000)
[2020-07-18 21:57] LABS: Basophils % 0.5 % (0.1-2.0); Eosinophils # 0.2 K/mm3 (0.0-0.4); Hematocrit 42.3 % (37.0-47.0); Lymphocytes # 2.3 K/mm3 (0.7-4.5); Lymphocytes % 31.1 % (10-50); Mean Corpuscular Hemoglobin 29.3 pg (27.0-31.2); Mean Corpuscular Volume 88.6 fl (81-99); Mean Platelet Volume 7.2 fl (7.4-10.4); Monocytes # 0.3 K/mm3 (0.1-1.0); Monocytes % 3.9 % (1.7-9.3); Neutrophils # 4.6 K/mm3 (1.8-7.8); Neutrophils % 61.4 % (37.0-80.0); Platelet Count 376 K/mm3 (142-424); Red Blood Count 4.78 M/mm3 (4.20-5.40); Red Cell Distribution Width 14.9 % (11.5-17.5); White Blood Count 7.5 K/mm3 (4.8-10.8)
[2020-07-18 21:57] LABS: Cannabinoid Screen,Urine Negative ng/ml (<50); Cocaine Screen,Urine Negative ng/ml (<300)
[2020-07-18 21:58] LABS: Methadone Screen,Urine Negative ng/ml (<300); Opiate Screen,Urine Negative ng/ml (<300)
[2020-07-18 21:59] LABS: Phencyclidine Screen,Urine Negative ng/ml (<25)
[2020-07-18 22:00] LABS: Bacteria,Urine 1+ /lpf; Mucus,Urine Trace /lpf
[2020-07-18 22:08] LABS: Chloride 103 mmol/L (98-107)
[2020-07-18 22:09] LABS: Potassium 3.6 mmoL/L (3.5-5.1); Sodium 141 mmol/L (136-145)
[2020-07-18 22:11] LABS: Alanine Aminotransferase 20 U/L (12-78); Amylase 61 U/L (30-110); Aspartate Amino Transferase 28 U/L (14-36); Blood Urea Nitrogen 13 mg/dl (7-17); Creatinine Clearance Estimated 115 mL/min (50-200); Estimated Glomerular Filt Rate 83 ml/min (>60); GFR (African American) 100 ML/MIN (>60)
[2020-07-18 22:12] LABS: Albumin Level 4.8 g/dl (3.5-5.0); Albumin/Globulin Ratio 1.4 (1.1-1.8); Alkaline Phosphatase 66 U/L (38-126); Anion Gap 14.6 mEq/L (5-15); Bilirubin,Total 0.3 mg/dl (0.2-1.3); Calcium 9.8 mg/dl (8.4-10.2); Carbon Dioxide 27 mmol/L (22.0-30.0); Globulin 3.4 g/dL (1.3-3.2); Glucose 95 mg/dl (74-100); Lipase 130 U/L (23-300); Total Protein,Serum 8.2 g/dl (6.3-8.2)
[2020-07-18 22:17] LABS: C-Reactive Protein 5.5 mg/L (0-4)
--- NOTE | 2020-07-18 22:48 | HMH.EDNVD ---
ED Disposition Clinical Impression: Taeniasis, unspecified Disposition: Home, Self-Care Condition on Discharge: Good Instructions: DI for Tapeworm Additional Instructions: use meds and see pcp for follow up Prescriptions: praziquanteL [Biltricide] 600 mg PO ONCE #1 tab Transmission Status: Pending to [facility] Referrals: Meka Fitch PA [Primary Care Provider] - - Critical Care Critical Care Time: No Attestation: On 07/18/20, the high probability of a clinically significant, sudden or life threatening deterioration of the following system(s) required my full and direct attention, intervention and personal management. The time I documented below is in addition to time spent performing reported procedures but includes the following listed in this critical care notation. Medical Decision Making - Medical Records Medical records reviewed: Yes: I reviewed the patient's medical records. - Sky Inquiry Pt receiving controlled substance: No Vital Signs: 07/18/20 20:55 07/18/20 21:53 Temperature 99.0 F Temperature Source Oral Pulse Rate [Right] 100 H 80 Respiratory Rate 18 18 Blood Pressure [Right Arm] 149/98 H 141/95 H Blood Pressure Mean [Right Arm] 115 110 Blood Pressure Source [Right Arm] Automatic Cuff Blood Pressure Position [Right Arm] Sitting 02 Sat by Pulse Oximetry 99 100 Oxygen Delivery Method Room Air Room Air - Lab Data Lab results reviewed: Yes: I reviewed the patient's lab results. Lab Results 07/18/20 21:30: Urine Color Yellow, Urine Appearance Clear, Urine pH 6.5, Ur Specific [place] 1.020, Urine Protein Negative, Urine Glucose (UA) Negative, Urine Ketones Negative, Urine Blood Negative, Urine Nitrate Negative, Urine Bilirubin Negative, Urine Urobilinogen 0.2, Ur Leukocyte Esterase Negative, Urine RBC 3-5, Urine WBC 10-20, Ur Squamous Epith Cells 10-20, Urine Bacteria 1+, Hyaline Casts 3-5, Urine Mucus Trace 07/18/20 21:30: Urine Opiates Screen Negative, Urine Methadone Screen Negative, Ur Barbituates Screen Negative, Ur Phencyclidine Scrn Negative, Ur Amphetamines Screen Negative, U Benzodiazepines Scrn Negative, Urine Cocaine Screen Negative, U Marijuana (THC) Screen Negative 07/18/20 21:45: WBC 7.5, RBC 4.78, Hgb 14.0, Hct 42.3, MCV 88.6, MCH 29.3, MCHC 33.0, RDW 14.9, Plt Count 376, MPV 7.2 L, Neut % (Auto) 61.4, Lymph % (Auto) 31.1, [place] % (Auto) 3.9, Eos % (Auto) 3.0, Baso % (Auto) 0.5, Neut # (Auto) 4.6, Lymph # (Auto) 2.3, [place] # (Auto) 0.3, Eos # (Auto) 0.2, Baso # (Auto) 0.0 07/18/20 21:45: Sodium 141, Potassium 3.6, Chloride 103, Carbon Dioxide 27, Anion Gap 14.6, BUN 13, Creatinine 0.80, Estimated Creat Clear 115, Estimated GFR 83, Est GFR ( Amer) 100, Glucose 95, Calcium 9.8, Total Bilirubin 0.3, AST 28, ALT 20, Alkaline Phosphatase 66, C-Reactive Protein 5.5 H, Total Protein 8.2, Albumin 4.8, Globulin 3.4 H, Albumin/Globulin Ratio 1.4, Amylase 61, Lipase 130 Result diagrams: 07/18/20 21:45 07/18/20 21:45 Orders (Tests/Meds): ED MEDICATIONS Discontinued Medications Generic Name Dose Route Start Last Admin Trade Name Freq PRN Reason Stop Dose Admin Famotidine 20 mg 07/18/20 21:05 07/18/20 21:43 Famotidine 20mg/2ml Vial IV 07/18/20 21:06 Not Given ONCE ONE Sodium Chloride 1,000 mls @ 999 mls/hr 07/18/20 21:15 07/18/20 21:43 Sod Chlor 0.9% 1000ml Bag IV 07/18/20 22:15 Not Given .Q1H1M RENEE Metoclopramide HCl 10 mg 07/18/20 21:05 07/18/20 21:43 Metoclopramide Hcl 10mg/2ml Vial IVP 07/18/20 21:06 Not Given ONCE ONE Ondansetron HCl 4 mg 07/18/20 21:05 07/18/20 21:43 Ondansetron 4mg/2ml Vial IV 07/18/20 21:06 Not Given ONCE ONE Ondansetron HCl 4 mg 07/18/20 21:41 07/18/20 21:52 Ondansetron 4mg Odt SL 07/18/20 21:42 4 mg ONCE ONE Administration Sodium Chloride 8 ml 07/18/20 21:05 Sodium Chloride 0.9% 10ml Vial IV 08/17/20 21:04 NEEDED PRN dilute pepcid ORDERS Ca
[2020-07-19 00:16] VITALS: BP 141/86; PULSE 85; RESP 16; TEMP 36.7; O2SAT 97
== END 2020-07-19 00:18 | disposition home or self-care (01) ==
PROVIDERS: Emergency Provider Emergency Medicine; PCP Physician Assistant
DX: B68.9 Taeniasis, unspecified (principal); F12.10 Cannabis abuse, uncomplicated; F41.8 Other specified anxiety disorders; F17.210 Nicotine dependence, cigarettes, uncomplicated; Z88.0 Allergy status to penicillin; Z79.899 Other long term (current) drug therapy
CPT/HCPCS: 74176; 80053; 80305; 81001; 82150; 83690; 85025; 86140; 87086; 99283

== ENCOUNTER 2020-07-22 00:54 | Emergency (ER) | payer MEDICAID, SELFPAY ==
[2020-07-22 01:01] VITALS: BP 153/94; PULSE 102; RESP 18; TEMP 36.8; O2SAT 100; BMI 25.0
[2020-07-22 01:30] VITALS: BP 149/91; PULSE 94; RESP 17; O2SAT 99
[2020-07-22 02:00] VITALS: BP 151/90; PULSE 96; RESP 17; O2SAT 99
--- NOTE | 2020-07-22 03:08 | PC.NURSE ---
Multiple attempts were made by Nurse, Protection Agent and Lab. Blood was not able to be obtained
--- NOTE | 2020-07-22 04:16 | HMH.EDOD ---
ED Disposition Clinical Impression: Methamphetamine abuse Disposition: Home, Self-Care Condition on Discharge: Good Instructions: DI for Drug Overdose in Adults Additional Instructions: see pcp for follow up Referrals: Provider,Referral, [Primary Care Provider] - - Critical Care Critical Care Time: No Attestation: On 07/22/20, the high probability of a clinically significant, sudden or life threatening deterioration of the following system(s) required my full and direct attention, intervention and personal management. The time I documented below is in addition to time spent performing reported procedures but includes the following listed in this critical care notation. Medical Decision Making - Medical Records Medical records reviewed: Yes: I reviewed the patient's medical records. - Sky Inquiry Pt receiving controlled substance: No Vital Signs: 07/22/20 01:01 07/22/20 01:30 07/22/20 02:00 Temperature 98.2 F Temperature Source Oral Pulse Rate [Right] 102 H 94 H 96 H Respiratory Rate 18 17 17 Blood Pressure [Right Arm] 153/94 H 149/91 H 151/90 H Blood Pressure Mean [Right Arm] 113 110 110 Blood Pressure Source [Right Arm] Automatic Cuff Automatic Cuff Automatic Cuff Blood Pressure Position [Right Arm] Sitting Supine Supine 02 Sat by Pulse Oximetry 100 99 99 Oxygen Delivery Method Room Air Room Air Room Air Orders (Tests/Meds): ORDERS Category Date Time Status PT/INR [Prothrombin Time INR] Stat Lab 07/22/20 01:20 Ordered Overdose HPI - General Chief Complaint: Overdose Stated Complaint: Meth use Time Seen by Provider: 07/22/20 02:00 Mode of Arrival: EMS Source of Information: Patient, EMS, Medical Record Limitations: No Limitations Description of Symptoms (Recalled from ER Triage Doc. by RN): Pt states she was doing meth and after googling it she thinks the Meth was poisoned with rat dope. - History of Present Illness HPI Narrative: meth use and concerned about laced with rat poison - no abd pain or bleeding and sig other with no sx who used same product complaint: accidental overdose Onset (ago): hour(s) Context: Accidental Overdose: wanted to get high Treatments Prior to Arrival: none - Related Data Home Medications Medication Instructions Recorded Confirmed Duloxetine HCl [Cymbalta] 30 mg PO DAILY 07/18/20 07/18/20 lamoTRIgine [Lamotrigine] 100 mg PO BID 07/18/20 07/18/20 Previous Rx's Medication Instructions Recorded praziquanteL [Biltricide] 600 mg PO ONCE #1 tab 07/18/20 Allergies Allergy/AdvReac Type Severity Reaction Status Date / Time ibuprofen [From Advil] Allergy Severe Swelling Verified 06/26/20 13:06 of Lip/Tongue/Throat Penicillins Allergy Mild Verified 06/26/20 13:06 shellfish derived Allergy Verified 07/18/20 21:08 [facility] History - Hepatitis A Screen Drug use history?: Yes High risk sexual behaviors?: No History of sexually transmitted infection?: No Currently employed?: No Childcare worker?: No Do you have indoor plumbing?: Yes Do you have electricity?: Yes Attestation statement:: This patient has been screened for Hepatitis A risk factors. I have reviewed the patient's past medical history: Yes Medical History: Reports:: Anxiety, Depression, Hepatitis Denies:: Cancer, Diabetes Mellitus Type 1, Diabetes Mellitus Type 2, Internal Pacemaker, MRSA, Seizures Other Medical History: Denies: Blood Transfusion Reaction Comment: obesity Other Surgeries: Yes: Dilation and Curettage, Tubal Ligation, Other (laparoscopic salpingectomy). 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
[2020-07-22 04:22] VITALS: BP 145/85; PULSE 92; RESP 18; TEMP 36.7; O2SAT 99
== END 2020-07-22 04:25 | disposition home or self-care (01) ==
PROVIDERS: Emergency Provider Emergency Medicine
DX: F15.10 Other stimulant abuse, uncomplicated (principal); F41.9 Anxiety disorder, unspecified; F32.9 Major depressive disorder, single episode, unspecified; Z86.19 Personal history of other infectious and parasitic diseases
CPT/HCPCS: 99282

== ENCOUNTER 2020-08-04 13:58 | Emergency (ER) | payer MEDICAID, SELFPAY ==
[2020-08-04 14:40] VITALS: BP 148/96; PULSE 89; RESP 19; TEMP 36.9; O2SAT 97; BMI 29.9
--- NOTE | 2020-08-04 14:45 | HMH.EDUTC ---
[facility] [place] Disposition Clinical Impression: Thrush Contact dermatitis Qualifiers: Contact dermatitis type: unspecified Contact dermatitis trigger: unspecified trigger Qualified Code(s): L25.9 - Unspecified contact dermatitis, unspecified cause Disposition: Home, Self-Care Condition on Discharge: Good Instructions: Contact Dermatitis, DI for Thrush Additional Instructions: Take the medications as directed. Follow up with your primary care doctor. GO TO THE ER FOR ANY WORSENING SYMPTOMS OR CONCERNS Prescriptions: Ondansetron [Zofran 4mg ODT] 4 mg PO Q8HP PRN #12 tab.rapdis PRN Reason: Nausea Transmission Status: Received by [facility] Nystatin [Nystatin Susp 500,000 Units/5mL Udc] 5 ml PO QID 7 Days #140 ml Transmission Status: Received by [facility] Triamcinolone Acetonide 1 applicatio TP TIDP PRN 7 Days #1 tube PRN Reason: Itching Transmission Status: Received by [facility] Referrals: Meka Fitch PA [Primary Care Provider] - Time of Disposition: 15:06 Medical Decision Making - Medical Records Medical records reviewed: No: I reviewed the patient's medical records. - Sky Inquiry Pt receiving controlled substance: No Vital Signs: 08/04/20 14:40 08/04/20 15:08 Temperature 98.4 F 98.4 F Temperature Source Oral Pulse Rate 89 Pulse Rate [Right Brachial] 89 Respiratory Rate 19 19 Blood Pressure 148/96 H Blood Pressure [Right Arm] 148/96 H Blood Pressure Mean [Right Arm] 113 Blood Pressure Source [Right Arm] Automatic Cuff Blood Pressure Position [Right Arm] Sitting 02 Sat by Pulse Oximetry 97 Oxygen Delivery Method Room Air - Lab Data Lab Results 08/04/20 14:52: Strep Scn Rapid Clinic Negative Orders (Tests/Meds): ORDERS Category Date Time Status Strep Screen Confirmation Stat Micro 08/04/20 14:52 Received [facility] [place] HPI - General Stated complaint: sores inside mouth Time Seen by Provider: 08/04/20 14:45 - History of Present Illness Provider Complaint: She states that for the past 3 days she has been having itching of her back. She has also had a scratchy sore throat and some white spots in her mouth. - Related Data Home Medications Medication Instructions Recorded Confirmed Duloxetine HCl [Cymbalta] 30 mg PO DAILY 10/30/20 11/06/20 lamoTRIgine [Lamotrigine] 100 mg PO BID 07/18/20 07/25/20 Previous Rx's Medication Instructions Recorded praziquanteL [Biltricide] 600 mg PO ONCE #1 tab 07/18/20 Nystatin [Nystatin Susp 500,000 5 ml PO QID 7 Days #140 ml 08/04/20 Units/5mL Udc] Ondansetron [Zofran 4mg ODT] 4 mg PO Q8HP PRN #12 tab.rapdis 08/04/20 Triamcinolone Acetonide 1 applicatio TP TIDP PRN 7 Days #1 08/04/20 tube Allergies Allergy/AdvReac Type Severity Reaction Status Date / Time ibuprofen [From Advil] Allergy Severe Swelling Verified 07/25/20 14:03 of Lip/Tongue/Throat Penicillins Allergy Mild Verified 07/25/20 14:03 shellfish derived Allergy Verified 07/25/20 14:03 [facility] History - Hepatitis A Screen Attestation statement:: This patient has been screened for Hepatitis A risk factors. I have reviewed the patient's past medical history: Yes Medical History: Reports:: Anxiety, Depression, Hepatitis Denies:: Cancer, Diabetes Mellitus Type 1, Diabetes Mellitus Type 2, Internal Pacemaker, MRSA, Seizures Other Medical History: Denies: Blood Transfusion Reaction Comment: obesity Other Surgeries: Yes: Dilation and Curettage, Tubal Ligation, Other (laparoscopic salpingectomy). No: Pacemaker Amputation: No Fractures: No Comment: ear, - Social History Smoking Status: Current every day smoker Tobacco Type: cigarettes # Packs/Day (cigarettes): 1 Alcohol Intake: never Substance Use Type: methamphetamine Occupational Status: unemployed Housing: apartment Household Members: significant other - Psychiatric History Pschychiatric History:: Reports:: Anxiety, Depression Famil
[2020-08-04 15:08] VITALS: BP 148/96; PULSE 89; RESP 19; TEMP 36.9; O2SAT 97
[2020-08-04 15:34] LABS: UTC Strep Screen (Rapid) Negative (Negative)
== END 2020-08-04 15:10 | disposition home or self-care (01) ==
PROVIDERS: Emergency Provider Nurse Practitioner Family; PCP Physician Assistant
DX: B37.0 Candidal stomatitis (principal); B19.20 Unspecified viral hepatitis C without hepatic coma; F41.8 Other specified anxiety disorders; F17.210 Nicotine dependence, cigarettes, uncomplicated; Z79.899 Other long term (current) drug therapy
CPT/HCPCS: 87880; 99201

== ENCOUNTER 2020-08-04 21:41 | Emergency (ER) | payer MEDICAID, SELFPAY ==
--- NOTE | 2020-08-04 21:45 | PC.NURSE ---
this nurse went in to pts room to triage pt. pt stated she was here for dermatitis and went to the [facility] today for it. when asked where at on the pts skin the infection was and what the [facility] said about it. pt began to yell and cuss at this nurse. this nurse stated she would give her a minute to calm down and would be back when she could have a clam discussion. pt walked out of the hospital out the ambulance doors.
--- NOTE | 2020-08-04 21:50 | PC.NURSE ---
pt walked back through the ER entrance to registration and complained of chest pain and demanding her come back with her.
--- NOTE | 2020-08-04 21:53 | PC.NURSE ---
pt was brought to room 7 by registration staff. this nurse went to triage pt again. pt was standing in the room with his phone out recording staff. this nurse stated i would be happy to treat you but recording is against hospital policy if they could please put the phone away. pt agreed and put the phone is his back pocket. . this nurse turned and addressed the pt and asked if she could explain what was going on with her tonight when the pt got up and grabbed the phone out of her husbands pocket and began to approach nurse while yelling and cussing. this nurse stepped out of the room and closed the curtain. both pt and pt walked out to the nurses station with continued behavior. [employer] hit alarm behind nurses station for police assistance. pt and both left the ER out the ambulance bay. while doing so pt kicked and hit the outter bay doors.
--- NOTE | 2020-08-04 22:02 | PC.NURSE ---
police and house supp. present in ER. they spoke with this nurse and explained that the pt wanted to seek treatment for dermatitis. this nurse with house explained to them that the pts hadnt been denied any treatment and that the staff were trying to treat her and triage her but that the pt wouldnt be aloud to cuss, yell and threaten staff during treatment. police went outside and told pt she was able to come back to room 7 for treatment but per house supp. the wouldnt be aloud to join her because of his threatening behavior towards staff and attempt to destroy hospital property. pt refused to get treatment without her and was escorted off property by staff.
[2020-08-04 23:00] VITALS: BP 00/00; PULSE 0; RESP 0; TEMP -17.7; TEMP 0
== END 2020-08-04 23:03 | disposition left against medical advice (07) ==
PROVIDERS: Emergency Provider Emergency Medicine; PCP Physician Assistant
DX: Z53.21 Procedure and treatment not carried out due to patient leaving prior to being seen by health care provider (principal)
CPT/HCPCS: 99211

== ENCOUNTER 2020-08-05 20:28 | Emergency (ER) | payer MEDICAID, SELFPAY ==
[2020-08-05 20:29] VITALS: BP 156/96; PULSE 97; RESP 14; TEMP 37.6; O2SAT 99; BMI 29.9
[2020-08-05 21:29] LABS: Basophils # 0.1 K/mm3 (0-0.2); Basophils % 0.9 % (0.1-2.0); Eosinophils # 0.2 K/mm3 (0.0-0.4); Eosinophils % 1.8 % (0.1-12.0); Hematocrit 41.5 % (37.0-47.0); Hemoglobin 13.3 g/dL (12.2-16.2); Lymphocytes # 2.8 K/mm3 (0.7-4.5); Lymphocytes % 31.8 % (10-50); Mean Corpuscular HGB Conc 32.1 g/dL (31.8-35.4); Mean Corpuscular Hemoglobin 29.2 pg (27.0-31.2); Mean Corpuscular Volume 90.7 fl (81-99); Monocytes # 0.4 K/mm3 (0.1-1.0); Monocytes % 4.7 % (1.7-9.3); Neutrophils # 5.3 K/mm3 (1.8-7.8); Neutrophils % 60.8 % (37.0-80.0); Platelet Count 451 K/mm3 (142-424); Red Blood Count 4.57 M/mm3 (4.20-5.40); Red Cell Distribution Width 14.8 % (11.5-17.5); White Blood Count 8.8 K/mm3 (4.8-10.8)
[2020-08-05 21:36] LABS: Chloride 100 mmol/L (98-107); Potassium 3.7 mmoL/L (3.5-5.1); Sodium 140 mmol/L (136-145)
[2020-08-05 21:38] LABS: Alanine Aminotransferase 39 U/L (12-78); Amylase 64 U/L (30-110); Aspartate Amino Transferase 56 U/L (14-36); Blood Urea Nitrogen 10 mg/dl (7-17); Creatinine Clearance Estimated 129 mL/min (50-200); Estimated Glomerular Filt Rate 83 ml/min (>60); GFR (African American) 100 ML/MIN (>60)
[2020-08-05 21:39] LABS: Albumin Level 4.9 g/dl (3.5-5.0); Albumin/Globulin Ratio 1.4 (1.1-1.8); Alkaline Phosphatase 94 U/L (38-126); Anion Gap 14.7 mEq/L (5-15); Bilirubin,Total 0.7 mg/dl (0.2-1.3); Calcium 10.2 mg/dl (8.4-10.2); Carbon Dioxide 29 mmol/L (22.0-30.0); Globulin 3.5 g/dL (1.3-3.2); Glucose 98 mg/dl (74-100); Lipase 106 U/L (23-300); Total Protein,Serum 8.4 g/dl (6.3-8.2)
[2020-08-05 21:45] LABS: HCG Qualitative, Serum Negative (Negative)
[2020-08-05 21:57] LABS: Hemoglobin A1C 5.3 % (4.0-6.0)
--- NOTE | 2020-08-05 22:40 | HMH.EDNVD ---
ED Disposition Clinical Impression: Abdominal pain Qualifiers: Abdominal location: generalized Qualified Code(s): R10.84 - Generalized abdominal pain Disposition: Home, Self-Care Condition on Discharge: Good Instructions: DI for Acute Abdomen Additional Instructions: see pcp for follow up next week Referrals: Meka Fitch PA [Primary Care Provider] - - Critical Care Critical Care Time: No Attestation: On 08/05/20, the high probability of a clinically significant, sudden or life threatening deterioration of the following system(s) required my full and direct attention, intervention and personal management. The time I documented below is in addition to time spent performing reported procedures but includes the following listed in this critical care notation. Medical Decision Making - Medical Records Medical records reviewed: Yes: I reviewed the patient's medical records. - Sky Inquiry Pt receiving controlled substance: No Vital Signs: 08/05/20 20:29 Temperature 99.7 F H Temperature Source Oral Pulse Rate [Right] 97 H Respiratory Rate 14 Blood Pressure [Right Arm] 156/96 H Blood Pressure Mean [Right Arm] 116 Blood Pressure Source [Right Arm] Automatic Cuff Blood Pressure Position [Right Arm] Supine 02 Sat by Pulse Oximetry 99 Oxygen Delivery Method Room Air - Lab Data Lab results reviewed: Yes: I reviewed the patient's lab results. Lab Results 08/05/20 21:20: WBC 8.8, RBC 4.57, Hgb 13.3, Hct 41.5, MCV 90.7, MCH 29.2, MCHC 32.1, RDW 14.8, Plt Count 451 H, MPV 7.0 L, Neut % (Auto) 60.8, Lymph % (Auto) 31.8, [place] % (Auto) 4.7, Eos % (Auto) 1.8, Baso % (Auto) 0.9, Neut # (Auto) 5.3, Lymph # (Auto) 2.8, [place] # (Auto) 0.4, Eos # (Auto) 0.2, Baso # (Auto) 0.1 08/05/20 21:20: Sodium 140, Potassium 3.7, Chloride 100, Carbon Dioxide 29, Anion Gap 14.7, BUN 10, Creatinine 0.80, Estimated Creat Clear 129, Estimated GFR 83, Est GFR ( Amer) 100, Glucose 98, Calcium 10.2, Total Bilirubin 0.7, AST 56 H, ALT 39, Alkaline Phosphatase 94, Total Protein 8.4 H, Albumin 4.9, Globulin 3.5 H, Albumin/Globulin Ratio 1.4, Amylase 64, Lipase 106 08/05/20 21:20: Hemoglobin A1c 5.3 08/05/20 21:20: Serum HCG, Qual Negative Result diagrams: 08/05/20 21:20 08/05/20 21:20 Orders (Tests/Meds): ORDERS Category Date Time Status Drug Screen,Urine Stat Lab 08/05/20 20:43 Ordered Urinalysis and Microscopic Stat Lab 08/05/20 20:43 Ordered - Reevaluation(s) Time: 22:50 Reevaluation #1: improved Nausea/Vomiting/Diarrhea HPI - General Chief complaint: Abdominal Pain Stated complaint: Abd Time Seen by Provider: 08/05/20 21:30 Mode of Arrival: EMS Source of Information: Patient, EMS, Medical Record Limitations: No Limitations Description of Symptoms (Recalled from ER Triage Doc. by RN): Pt here last night and at [facility] for same, C/O abd pain, non-tender on palpation - History of Present Illness HPI Narrative: pt with reported abd pain - had been at [facility] last pm for same - was at pcp this afternoon w/o abd pain - no fever or vomiting MD complaint: abdominal pain Onset (ago): hour(s) Associated Abdominal Pain: Yes Location of pain: diffuse Severity: mild Quality: aching Consistency: now resolved Associated symptoms: denies other symptoms - Related Data Home Medications Medication Instructions Recorded Confirmed Duloxetine HCl [Cymbalta] 30 mg PO DAILY 07/18/20 08/05/20 lamoTRIgine [Lamotrigine] 100 mg PO BID 07/18/20 08/05/20 Previous Rx's Medication Instructions Recorded Nystatin [Nystatin Susp 500,000 5 ml PO QID 7 Days #140 ml 08/04/20 Units/5mL Udc] Ondansetron [Zofran 4mg ODT] 4 mg PO Q8HP PRN #12 tab.rapdis 08/04/20 Triamcinolone Acetonide 1 applicatio TP TIDP PRN 7 Days #1 08/04/20 tube hydroxyzine HCl 25 mg tablet 25 mg PO Q8H #30 tab 08/05/20 Allergies Allergy/AdvReac Type Severity Reaction Status Date / Time ibup
--- NOTE | 2020-08-05 22:47 | PC.NURSE ---
went with Dr. Vega in to assess patient as a witness. she states she was sleeping when her called the ambulance. she had previously had a stomach ache. Dr. Vega finished his assessment and informed her he would get her discharged.
[2020-08-05 22:49] VITALS: BP 143/92; PULSE 105; RESP 16; TEMP 36.7
== END 2020-08-05 22:54 | disposition home or self-care (01) ==
PROVIDERS: Emergency Provider Emergency Medicine; PCP Physician Assistant
DX: R10.84 Generalized abdominal pain (principal); F41.8 Other specified anxiety disorders; F17.210 Nicotine dependence, cigarettes, uncomplicated; Z79.899 Other long term (current) drug therapy
CPT/HCPCS: 80053; 82150; 83036; 83690; 84703; 85025; 99282

== ENCOUNTER 2021-04-26 06:56 | Emergency (ER) | payer MEDICAID, SELFPAY ==
[2021-04-26] VITALS (10 sets, daily range): BP systolic 00–144; BP diastolic 00–89; PULSE 0–97; RESP 0–16; TEMP -17.7–37.2; O2SAT 100; BMI 24.1
--- NOTE | 2021-04-26 07:01 | CT_ITS ---
PROCEDURE INFORMATION: Exam: CT Abdomen And Pelvis Without Contrast Exam date and time: 04/26/2021 7:01 AM Age: 35 years old Clinical indication: Abdominal pain; Generalized; Prior surgery; Surgery type: Tubal ligation; Additional info: Diffuse abdominal pain TECHNIQUE: Imaging protocol: Computed tomography of the abdomen and pelvis without contrast. Radiation optimization: All CT scans at this facility use at least one of these dose optimization techniques: automated exposure control; mA and/or kV adjustment per patient size (includes targeted exams where dose is matched to clinical indication); or iterative reconstruction. COMPARISON: CT ABDOMEN PELVIS WO CON 07/18/2020 10:39 PM FINDINGS: Liver: The liver is normal in appearance, without evidence of mass or intrahepatic bile duct dilatation. Gallbladder and bile ducts: The gallbladder is normal appearance, without evidence of gallbladder wall thickening or pericholecystic fluid. Pancreas: The pancreas is normal in appearance, without evidence of mass, cyst, peripancreatic inflammatory change, or pancreatic duct dilatation. Spleen: The spleen is normal in appearance. Adrenal glands: Both adrenal glands are normal in appearance, without evidence of mass or focal abnormality. Kidneys and ureters: Both kidneys are normal in appearance, without evidence of nephrolithiasis or hydronephrosis. Stomach and bowel: The stomach is normal in appearance, without evidence of mass or wall thickening. The small bowel is normal in appearance, without evidence of wall thickening, perienteric inflammatory change, or small bowel obstruction. The terminal ileum and cecum are within normal limits. The ascending, transverse, and descending colon are within normal limits. Appendix: The appendix is normal in appearance, without evidence of wall thickening or periappendiceal fat stranding. Intraperitoneal space: Unremarkable. No free air. No significant fluid collection. Vasculature: Unremarkable. No abdominal aortic aneurysm. Lymph nodes: Unremarkable. No enlarged lymph nodes. Urinary bladder: Unremarkable as visualized. Reproductive: Unremarkable as visualized. Bones/joints: Unremarkable. No acute fracture. Soft tissues: Unremarkable. IMPRESSION: No acute abnormality.
--- NOTE | 2021-04-26 07:02 | HMH.EDGENADL ---
ED Disposition Clinical Impression: Abdominal pain Qualifiers: Abdominal location: unspecified location Qualified Code(s): R10.9 - Unspecified abdominal pain Disposition: Still a Patient Condition on Discharge: Fair Referrals: Meka Fitch PA [Primary Care Provider] - - Critical Care Critical Care Time: No Attestation: On 04/26/21, the high probability of a clinically significant, sudden or life threatening deterioration of the following system(s) required my full and direct attention, intervention and personal management. The time I documented below is in addition to time spent performing reported procedures but includes the following listed in this critical care notation. Medical Decision Making - Sky Inquiry Pt receiving controlled substance: No Vital Signs: 04/26/21 07:03 Temperature 99.0 F Temperature Source Oral Pulse Rate [Right] 93 H Respiratory Rate 16 Blood Pressure [Right Arm] 120/87 Blood Pressure Mean [Right Arm] 98 Blood Pressure Source [Right Arm] Automatic Cuff Blood Pressure Position [Right Arm] Sitting 02 Sat by Pulse Oximetry 100 Oxygen Delivery Method Room Air - Lab Data Lab Results 04/26/21 07:25: WBC 5.3, RBC 5.17, Hgb 15.0, Hct 45.1, MCV 87.1, MCH 29.1, MCHC 33.4, RDW 15.6, Plt Count 401, MPV 7.6, Neut % (Auto) 54.4, Lymph % (Auto) 36.6, [place] % (Auto) 5.8, Eos % (Auto) 2.1, Baso % (Auto) 1.1, Neut # (Auto) 2.9, Lymph # (Auto) 1.9, [place] # (Auto) 0.3, Eos # (Auto) 0.1, Baso # (Auto) 0.1 04/26/21 07:25: Sodium 139, Potassium 3.6, Chloride 100, Carbon Dioxide 26, Anion Gap 16.6 H, BUN 6 L, Creatinine 0.70, Estimated Creat Clear 118, Estimated GFR 96, Est GFR ( Amer) 116, Glucose 112 H, Calcium 10.5 H, Total Bilirubin 1.9 H, AST 147 H, ALT 203 H, Alkaline Phosphatase 112, Total Protein 9.7 H, Albumin 5.3 H, Globulin 4.4 H, Albumin/Globulin Ratio 1.2, Lipase 97 Result diagrams: 04/26/21 07:25 04/26/21 07:25 Orders (Tests/Meds): ED MEDICATIONS Generic Name Dose Route Start Last Admin Trade Name Freq PRN Reason Stop Dose Admin Lactated Ringer's 1,000 mls @ 999 mls/hr 04/26/21 07:15 04/26/21 07:28 Lactated Ringer's 1000 Ml Bag IV 04/26/21 08:15 999 mls/hr .Q1H1M RENEE Administration Discontinued Medications Generic Name Dose Route Start Last Admin Trade Name Freq PRN Reason Stop Dose Admin Acetaminophen 1,000 mg 04/26/21 07:01 04/26/21 07:28 Acetaminophen 500mg Tab PO 04/26/21 07:02 1,000 mg ONCE ONE Administration ORDERS Category Date Time Status CT abdomen pelvis wo con Stat Cat Scan 04/26/21 07:01 Ordered HCG Qualitative, Serum Stat Lab 04/26/21 07:25 Received Lactic Acid Stat Lab 04/26/21 07:01 Ordered Serum [HCG Qualitative, Serum] Stat Lab 04/26/21 07:25 Received Urinalysis and Microscopic Stat Lab 04/26/21 07:01 Ordered Medical Decision Narrative: The patient is a 35-year-old female who presents to the emergency department with abdominal pain. Differential diagnosis includes appendicitis, UTI, constipation, colitis, bowel obstruction, ovarian cyst, ectopic . Given this plan to obtain CBC, CMP, lipase, lactate, urinalysis, test, CT abdomen pelvis. The patient was given IV fluids, Zofran, and Tylenol. I handed off care of this patient to Dr. Hernandez at shift change pending CT, labs, and reevaluation. General Adult HPI - General Stated complaint: abd pain Time Seen by Provider: 04/26/21 07:00 Mode of Arrival: EMS Source of Information: Patient Limitations: No Limitations - History of Present Illness HPI narrative: The patient is a 35-year-old female who presents to the emergency department with abdominal pain. She reports the pain started yesterday morning and is located in the right lower quadrant but radiates towards the suprapubic region. She reports it is associated with frequency but denies dysuria, urgency, vaginal discharge. She denies vomiting, diarrhea. She did
[2021-04-26 07:43] LABS: Basophils # 0.1 K/mm3 (0-0.2); Basophils % 1.1 % (0.1-2.0); Chloride 100 mmol/L (98-107); Eosinophils # 0.1 K/mm3 (0.0-0.4); Eosinophils % 2.1 % (0.1-12.0); Hematocrit 45.1 % (37.0-47.0); Lymphocytes # 1.9 K/mm3 (0.7-4.5); Lymphocytes % 36.6 % (10-50); Mean Corpuscular HGB Conc 33.4 g/dL (31.8-35.4); Mean Corpuscular Hemoglobin 29.1 pg (27.0-31.2); Mean Corpuscular Volume 87.1 fl (81-99); Mean Platelet Volume 7.6 fl (7.4-10.4); Monocytes # 0.3 K/mm3 (0.1-1.0); Monocytes % 5.8 % (1.7-9.3); Neutrophils # 2.9 K/mm3 (1.8-7.8); Neutrophils % 54.4 % (37.0-80.0); Platelet Count 401 K/mm3 (142-424); Potassium 3.6 mmoL/L (3.5-5.1); Red Blood Count 5.17 M/mm3 (4.20-5.40); Red Cell Distribution Width 15.6 % (11.5-17.5); Sodium 139 mmol/L (136-145); White Blood Count 5.3 K/mm3 (4.8-10.8)
[2021-04-26 07:45] LABS: Alanine Aminotransferase 203 U/L (12-78); Alkaline Phosphatase 112 U/L (38-126); Anion Gap 16.6 mEq/L (5-15); Aspartate Amino Transferase 147 U/L (14-36); Bilirubin,Total 1.9 mg/dl (0.2-1.3); Blood Urea Nitrogen 6 mg/dl (7-17); Carbon Dioxide 26 mmol/L (22.0-30.0); Creatinine Clearance Estimated 118 mL/min (50-200); Estimated Glomerular Filt Rate 96 ml/min (>60); GFR (African American) 116 ML/MIN (>60); Lipase 97 U/L (23-300)
[2021-04-26 07:46] LABS: Albumin Level 5.3 g/dl (3.5-5.0); Albumin/Globulin Ratio 1.2 (1.1-1.8); Calcium 10.5 mg/dl (8.4-10.2); Globulin 4.4 g/dL (1.3-3.2); Glucose 112 mg/dl (74-100); Total Protein,Serum 9.7 g/dl (6.3-8.2)
[2021-04-26 08:06] LABS: HCG Qualitative, Serum Negative (Negative)
[2021-04-26 08:07] LABS: HCG Qualitative, Serum Negative (Negative)
--- NOTE | 2021-04-26 08:07 | PC.NURSE ---
pt's updated on plan of care.
[2021-04-26 09:34] LABS: Appearance,Urine CLOUDY (Clear); Blood, Urine Negative (Negative); Color,Urine ORANGE (Yellow); Glucose,Urine (UA) TRACE (Negative); Ketones,Urine Negative (Negative); Leukocyte Esterase,Urine Negative (Negative); Microscopic, Urine URINE MICROSCOPIC (MICROSCOPIC); Nitrate,Urine Negative (Negative); PH,Urine 6.5 (5.0-8.5); Protein,Urine Negative (Negative); Specific Gravity, Urine 1.015 (1.005-1.030)
--- NOTE | 2021-04-26 09:37 | PC.NURSE ---
Pt approached nurses station stating I'm done waiting, I have an appointment at 10:30. Pt informed that not all her test results are back & it would be leaving against medical advice. Pt agreeable & signed AMA paperwork. 20G PIV to LAC removed. Pt refused last set of vital signs & ambulatory out of the building without difficulties. Dr. Hernandez notified of situation.
[2021-04-26 09:38] LABS: Bilirubin,Urine 1+ (Negative)
[2021-04-26 09:41] LABS: Bacteria,Urine Trace /lpf; RBC,Urine Occasional #/hpf (0-3)
== END 2021-04-26 09:40 | disposition left against medical advice (07) ==
PROVIDERS: Emergency Provider Emergency Medicine; PCP Physician Assistant
DX: R10.31 Right lower quadrant pain (principal); K59.00 Constipation, unspecified; F41.8 Other specified anxiety disorders; F17.210 Nicotine dependence, cigarettes, uncomplicated
CPT/HCPCS: 74176; 80053; 81001; 83690; 84703; 85025; 96365; 99283

== ENCOUNTER → 2021-05-09 12:50 | Outpatient (CLI) | payer MEDICAID, SELFPAY | PROVIDERS: Visit Provider Physician Assistant | DX: B19.20 Unspecified viral hepatitis C without hepatic coma (principal) | CPT/HCPCS: 36415 ==

== ENCOUNTER → 2021-05-11 15:43 | Outpatient (CLI) | payer MEDICAID, SELFPAY | PROVIDERS: Visit Provider Physician Assistant | DX: B19.20 Unspecified viral hepatitis C without hepatic coma (principal) ==

== ENCOUNTER 2021-08-29 17:46 | Emergency (ER) | payer MEDICAID, SELFPAY ==
[2021-08-29 17:50] VITALS: BP 155/96; PULSE 129; RESP 19; TEMP 36.6; O2SAT 99; BMI 28.3
--- NOTE | 2021-08-29 17:59 | XR_ITS ---
PROCEDURE INFORMATION: Exam: XR Chest Exam date and time: 08/29/2021 5:59 PM Age: 35 years old Clinical indication: Other: Tightness of chest TECHNIQUE: Imaging protocol: XR of the chest. Views: 2 views. COMPARISON: CT ABDOMEN PELVIS WO CON 04/26/2021 7:59 AM FINDINGS: Lungs: Unremarkable. No consolidation. Pleural spaces: Unremarkable. No pleural effusion. No pneumothorax. Heart/Mediastinum: Unremarkable. No cardiomegaly. Bones/joints: Unremarkable. IMPRESSION: No acute findings.
--- NOTE | 2021-08-29 18:36 | HMH.EDUTC ---
[facility] [place] Clinical Impression: Bed bug bite Qualifiers: Encounter type: initial encounter Qualified Code(s): W57.XXXA - Bitten or stung by nonvenomous insect and other nonvenomous arthropods, initial encounter Allergic reaction Qualifiers: Encounter type: initial encounter Qualified Code(s): T78.40XA - Allergy, unspecified, initial encounter Disposition: Home, Self-Care Condition on Discharge: Good Instructions: DI for Contact Dermatitis Additional Instructions: steroids as ordered cream as needed have house looked at for more bugs Prescriptions: predniSONE [Prednisone 20mg Tab] 20 mg PO BID #10 tab Transmission Status: Pending to [facility] Triamcinolone Acetonide 15 gm TP BID 7 Days #15 gm Transmission Status: Pending to [facility] Referrals: Meka Fitch PA [Primary Care Provider] - Time of Disposition: 18:48 Medical Decision Making - Sky Inquiry Pt receiving controlled substance: No Vital Signs: 08/29/21 17:50 Temperature 97.8 F Temperature Source Oral Pulse Rate [Right Brachial] 129 H Respiratory Rate 19 Blood Pressure [Right Arm] 155/96 H Blood Pressure Mean [Right Arm] 115 Blood Pressure Source [Right Arm] Automatic Cuff Blood Pressure Position [Right Arm] Sitting 02 Sat by Pulse Oximetry 99 Oxygen Delivery Method Room Air Orders (Tests/Meds): ED MEDICATIONS Discontinued Medications Generic Name Dose Route Start Last Admin Trade Name Freq PRN Reason Stop Dose Admin Dexamethasone Sodium Phosphate 4 mg 08/29/21 18:42 Dexamethasone 4mg/Ml 1ml Vial IM 08/29/21 18:43 ONCE ONE ORDERS Category Date Time Status CXR 2 view (NOT portable) [XR chest 2V] Stat Exams 08/29/21 17:59 Taken [facility] [place] HPI - General Chief complaint: Urgent Treatment Center Stated complaint: itchy skin Time Seen by Provider: 08/29/21 18:36 Mode of Arrival: Ambulatory Source of Information: Patient, Significant Other Limitations: No Limitations Description of Symptoms (Recalled from Triage Doc. by RN): PATIENT C/O ITCHING X 3 DAYS AND TIGHTNESS IN CHEST. 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 HEENT Symptoms (Recalled from RN notes): No Resp Symptoms (Recalled from RN notes): No Skin Symptoms (Recalled from RN notes): No MS Symptoms (Recalled from RN notes): No Functional Status (Recalled from RN notes): WNL - History of Present Illness Provider Complaint: 35 yr old female presnets for itching in skin, and chest tightness. pt states she has been breathing in by products of parasites that live on birds in her lungs. family found a bug on her pants that was a bed bug. - Related Data Home Medications Medication Instructions Recorded Confirmed Buprenorphine HCl/Naloxone HCl 2 each SL DAILY 08/29/21 08/29/21 [Buprenorphin-Naloxon 8-2 mg Sl] Mirtazapine [Remeron] 30 mg PO DAILY 08/29/21 08/29/21 Quetiapine Fumarate [Seroquel 100 mg PO BID 08/29/21 08/29/21 100mg tablet] Previous Rx's Medication Instructions Recorded Triamcinolone Acetonide 15 gm TP BID 7 Days #15 gm 08/29/21 predniSONE [Prednisone 20mg 20 mg PO BID #10 tab 08/29/21 Tab] Allergies Allergy/AdvReac Type Severity Reaction Status Date / Time ibuprofen [From Advil] Allergy Severe Swelling Verified 05/07/21 13:22 of Lip/Tongue/Throat Penicillins Allergy Mild Verified 05/07/21 13:22 shellfish derived Allergy Verified 05/07/21 13:22 - Worker's Comp Is this a Worker's Comp case?: No H History - Hepatitis A Screen Drug use history?: No High risk sexual behaviors?: No History of sexually transmitted infection?: No Currently employed?: No Childcare worker?: No Do you have indoor plumbing?: Yes Do you have electricity?: Yes Attestation statement:: This patient has been screened for Hepatitis A risk factors. I have reviewed the patient's past medical history: Yes
[2021-08-29 18:53] VITALS: BP 155/96; PULSE 129; RESP 19; TEMP 36.6; O2SAT 99
== END 2021-08-29 18:56 | disposition home or self-care (01) ==
PROVIDERS: Emergency Provider Nurse Practitioner Family; PCP Physician Assistant
DX: T78.40XA Allergy, unspecified, initial encounter (principal); W57.XXXA Bitten or stung by nonvenomous insect and other nonvenomous arthropods, initial encounter; F41.8 Other specified anxiety disorders; Z88.0 Allergy status to penicillin; F17.210 Nicotine dependence, cigarettes, uncomplicated
CPT/HCPCS: 71046; 96372; 99202; G0463

== ENCOUNTER → 2021-09-14 13:58 | Outpatient (CLI) | payer MEDICAID, SELFPAY ==
[2021-09-14 14:09] LABS: Basophils # 0.1 K/mm3 (0-0.2); Basophils % 1.6 % (0.1-2.0); Eosinophils # 0.1 K/mm3 (0.0-0.4); Eosinophils % 1.5 % (0.1-12.0); Hematocrit 44.6 % (37.0-47.0); Hemoglobin 14.6 g/dL (12.2-16.2); Lymphocytes # 3.1 K/mm3 (0.7-4.5); Lymphocytes % 47.5 % (10-50); Mean Corpuscular HGB Conc 32.8 g/dL (31.8-35.4); Mean Corpuscular Hemoglobin 31.1 pg (27.0-31.2); Mean Corpuscular Volume 94.8 fl (81-99); Monocytes # 0.4 K/mm3 (0.1-1.0); Monocytes % 5.4 % (1.7-9.3); Neutrophils # 2.9 K/mm3 (1.8-7.8); Platelet Count 339 K/mm3 (142-424); Red Cell Distribution Width 13.3 % (11.5-17.5); White Blood Count 6.5 K/mm3 (4.8-10.8)
[2021-09-14 14:10] LABS: Chloride 103 mmol/L (98-107); Sodium 136 mmol/L (136-145)
[2021-09-14 14:11] LABS: Potassium 4.5 mmoL/L (3.5-5.1)
[2021-09-14 14:13] LABS: Alanine Aminotransferase 21 U/L (12-78); Albumin Level 4.2 g/dl (3.5-5.0); Albumin/Globulin Ratio 1.5 (1.1-1.8); Alkaline Phosphatase 78 U/L (38-126); Anion Gap 12.5 mEq/L (5-15); Aspartate Amino Transferase 32 U/L (14-36); Blood Urea Nitrogen 7 mg/dl (7-17); Carbon Dioxide 25 mmol/L (22.0-30.0); Estimated Glomerular Filt Rate 114 ml/min (>60); GFR (African American) 138 ML/MIN (>60); Globulin 2.8 g/dL (1.3-3.2)
[2021-09-14 14:14] LABS: Bilirubin,Total 0.1 mg/dl (0.2-1.3); Calcium 8.9 mg/dl (8.4-10.2); Glucose 108 mg/dl (74-100)
[2021-09-16 08:18] LABS: HIV Screen 4th Generation wRfx Non Reactive (Non Reactive)
[2021-09-16 10:29] LABS: Hep A Ab, IgM Negative (Negative); Hep A Ab, Total Positive (Negative); Hep B Core Ab, Total Positive (Negative); Hep B Surface Ab, Qual Non Reactive (.); Hepatitis C Antibody >11.0 s/co ratio (0.0-0.9)
[2021-09-16 12:09] LABS: HBsAg Confirmation Positive (.); Hepatitis B Surface Antigen Confirm. indicated (Negative)
[2021-09-23 12:10] LABS: HCV Genotype Charge YES; Hepatitis C Genotype 3 (.)
== END ==
PROVIDERS: Visit Provider Family Medicine
DX: B18.2 Chronic viral hepatitis C (principal)
CPT/HCPCS: 80053; 85025; 86703; 86704; 86706; 86708; 87340; 87380; 87522; 87902; G0432

== ENCOUNTER → 2021-11-25 11:11 | Outpatient (CLI) | payer MEDICAID, SELFPAY ==
[2021-11-25 13:08] LABS: Basophils # 0.1 K/mm3 (0-0.2); Eosinophils # 0.1 K/mm3 (0.0-0.4); Eosinophils % 1.8 % (0.1-12.0); Hematocrit 40.7 % (37.0-47.0); Hemoglobin 13.7 g/dL (12.2-16.2); Lymphocytes # 1.6 K/mm3 (0.7-4.5); Lymphocytes % 24.7 % (10-50); Mean Corpuscular HGB Conc 33.6 g/dL (31.8-35.4); Mean Corpuscular Hemoglobin 30.7 pg (27.0-31.2); Mean Corpuscular Volume 91.3 fl (81-99); Mean Platelet Volume 8.6 fl (7.4-10.4); Monocytes # 0.4 K/mm3 (0.1-1.0); Monocytes % 6.8 % (1.7-9.3); Neutrophils # 4.1 K/mm3 (1.8-7.8); Neutrophils % 65.8 % (37.0-80.0); Platelet Count 298 K/mm3 (142-424); Red Blood Count 4.46 M/mm3 (4.20-5.40); Red Cell Distribution Width 13.3 % (11.5-17.5); White Blood Count 6.3 K/mm3 (4.8-10.8)
== END ==
PROVIDERS: Visit Provider Allergy & Immunology
DX: L29.9 Pruritus, unspecified (principal); J30.9 Allergic rhinitis, unspecified
CPT/HCPCS: 36415; 85025

== ENCOUNTER → 2022-03-29 10:48 | Outpatient (CLI) | payer MEDICAID, SELFPAY ==
[2022-03-29 12:48] LABS: Chloride 105 mmol/L (98-107); Potassium 3.9 mmoL/L (3.5-5.1); Sodium 137 mmol/L (136-145)
[2022-03-29 12:51] LABS: Alanine Aminotransferase 24 U/L (12-78); Albumin Level 4.5 g/dl (3.5-5.0); Albumin/Globulin Ratio 1.6 (1.1-1.8); Alkaline Phosphatase 74 U/L (38-126); Anion Gap 11.9 mEq/L (5-15); Aspartate Amino Transferase 36 U/L (14-36); Bilirubin,Total 0.6 mg/dl (0.2-1.3); Blood Urea Nitrogen 7 mg/dl (7-17); Carbon Dioxide 24 mmol/L (22.0-30.0); Estimated Glomerular Filt Rate 114 ml/min (>60); GFR (African American) 138 ML/MIN (>60); Globulin 2.9 g/dL (1.3-3.2); Total Protein,Serum 7.4 g/dl (6.3-8.2)
[2022-03-29 12:52] LABS: Calcium 9.9 mg/dl (8.4-10.2); Glucose 106 mg/dl (74-100)
[2022-03-30 08:38] LABS: HIV Screen 4th Generation wRfx Non Reactive (Non Reactive); Hep Be Ag Negative (Negative); Hepatitis B Surf Ab Quant <3.1 mIU/mL (Immunity>9.9); Hepatitis B Surface Antigen Negative (Negative)
[2022-03-30 16:12] LABS: Hepatitis Be Antibody Positive (Negative)
[2022-03-31 01:09] LABS: ALT (SGPT) P5P 20 IU/L (0-40); Alpha 2-Macroglobulins, Qn 182 mg/dL (110-276); Apolipoprotein A-1 181 mg/dL (116-209); Bilirubin, Total 0.4 mg/dL (0.0-1.2); GGT 67 IU/L (0-60); Haptoglobin 105 mg/dL (33-278); Necroinflammat Activity Grade A0-No activity (.); Necroinflammat Activity Score 0.06 (0.00-0.17)
[2022-04-01 15:32] LABS: HBV IU/mL <10 IU/mL (.)
== END ==
PROVIDERS: Visit Provider Physician Assistant
DX: B19.10 Unspecified viral hepatitis B without hepatic coma (principal); B19.20 Unspecified viral hepatitis C without hepatic coma
CPT/HCPCS: 36415; 80053; 81596; 86703; 86706; 86707; 87340; 87350; 87517; 87522; G0432

== ENCOUNTER 2023-06-03 23:59 | Emergency (ER) | payer MEDICAID, SELFPAY ==
[2023-06-04] VITALS: BP 142/89; PULSE 110; RESP 20; TEMP 36.7; O2SAT 98; BMI 26.6
--- NOTE | 2023-06-04 00:06 | HMH.EDGENADL ---
Discharge Plan Disposition Patient Disposition: Home, Self-Care Condition: Good Prescriptions Prescriptions: No Action sofosbuvir-velpatasvir 400-100 mg tablet 1 tab PO DAILY Qty: 28 2RF quetiapine 100 MG tablet 100 mg PO BID mirtazapine 30 MG tablet 30 mg PO DAILY buprenorphine-naloxone 1 EACH tablet, sublingual 2 each SL DAILY prednisone 20 MG tablet 20 mg PO BID Qty: 10 0RF triamcinolone acetonide 15 GM ointment 15 gm TP BID 7 Days Qty: 15 0RF Rx Instructions: .025% Referrals Follow up/Referrals: Provider,Referral, MD [Primary Care Provider] - See instructions Activity Restrictions/Add. Instructions Additional Instructions/Restrictions: Please follow-up with a primary care provider for further evaluation of your symptoms. We have multiple providers who are accepting new patients. Please return to the emergency department if you develop any new or worsening symptoms or become concerned for your health. Clinical Impressions Clinical Impression: Encounter for medical assessment Instructions Patient Instructions: DI for Skin Abscess Discharge ED Provider: Fabrizio Houser General Adult HPI General Chief complaint: Skin/Abscess/Foreign Body Stated complaint: worms in poop Time Seen by Provider: 06/04/23 00:04 History of Present Illness HPI narrative: 7-year-old female history of schizophrenia on meds, prior drug use reportedly clean for the last year and a half presents with multiple complaints. The primary reason for presentation is that she feels like she saw worms in her poop. She thinks this may have happened once before but she was on drugs at the time and says she is not sure if it was real. She feels like she saw thin linear things in her poop tonight. She also a variety of chronic symptoms including intermittent chest pain, chronic weight loss, abdominal pain, itching etc. Denies any active symptoms at this time. Related Data Home Medications Medication Instructions Recorded Confirmed buprenorphine 8 mg-naloxone 2 mg 2 each SL DAILY ADDICTION 08/29/21 09/14/21 sublingual tablet mirtazapine 30 mg tablet 30 mg PO DAILY Anxiety 08/29/21 09/14/21 quetiapine 100 mg tablet 100 mg PO BID PTSD 08/29/21 09/14/21 Previous Rx's Medication Instructions Recorded prednisone 20 mg tablet 20 mg PO BID #10 tabs 08/29/21 triamcinolone acetonide 0.1 % 15 gm TP BID 7 days ##15 08/29/21 topical ointment sofosbuvir 400 mg-velpatasvir 100 1 tab PO DAILY #28 tabs 10/13/ mg tablet Allergies Allergy/AdvReac Type Severity Reaction Status Date / Time ibuprofen [From Advil] Allergy Severe Swelling Verified 09/14/21 11:29 of Lip/Tongue/Throat Penicillins Allergy Mild Verified 09/14/21 11:29 shellfish derived Allergy Verified 09/14/21 11:29 [facility] Disclaimer: The information contained in this section may have been updated after the patient was seen, as this information can be updated by other users. Medical History (Updated 06/04/23 @ 01:47 by Fabrizio Houser MD) Bipolar disorder PTSD (post-traumatic stress disorder) Schizoaffective disorder, bipolar type Social History Smoking Status: Current every day smoker tobacco type: cigarettes packs per day: 1 second hand exposure: No alcohol intake: never substance use type: former substance user and heroin current occupational status: unemployed Travel in the last 8 weeks: None household members: significant other housing: apartment number of children: 1 current occupational exposures/hazards: No caffeine: Yes ROS Obtained: Yes All systems reviewed & no additional complaints except as documented Physical Exam General General appearance: alert and in no apparent distress Head Head exam: atraumatic and normocephalic Eye Eye exam: Present normal appearance, PERRL and EOMI ENT ENT exam: Present normal oropharynx and normal external ear exam Neck Neck exa
--- NOTE | 2023-06-04 00:10 | PC.NURSE ---
in room talking with patient at this time.
[2023-06-04 00:17] VITALS: BP 142/89; PULSE 106; RESP 18; O2SAT 100
--- NOTE | 2023-06-04 00:37 | ECG_ITS ---
APPROVED REPORT Exam: Resting ECG HR:111 bpm ECG Measurements Heart Rate 111 AXES PA 140 P 65 QRSd 108 QRS -16 QT 361 T 45 QTc 426 Conclusion SINUS TACHYCARDIA INCOMPLETE RIGHT BUNDLE BRANCH BLOCK [90+ ms QRS DURATION, TERMINAL R IN V1/V2, 40+ ms S IN I/aVL/V4/V5/V6] MODERATE ST DEPRESSION [0.05+ mV ST DEPRESSION] ABNORMAL ECG UNCONFIRMED REPORT Electronically signed by : Brennan Ayala MD 06/05/2023 15:07:37
[2023-06-04 01:33] LABS: Basophils # 0.1 K/mm3 (0-0.2); Basophils % 0.8 % (0.1-2.0); Eosinophils # 0.1 K/mm3 (0.0-0.4); Eosinophils % 2.1 % (0.1-12.0); Hematocrit 42.1 % (37.0-47.0); Hemoglobin 13.3 g/dL (12.2-16.2); Lymphocytes # 2.8 K/mm3 (0.7-4.5); Lymphocytes % 44.8 % (10-50); Mean Corpuscular HGB Conc 31.6 g/dL (31.8-35.4); Mean Corpuscular Hemoglobin 28.3 pg (27.0-31.2); Mean Corpuscular Volume 89.6 fl (81-99); Mean Platelet Volume 7.7 fl (7.4-10.4); Monocytes # 0.3 K/mm3 (0.1-1.0); Monocytes % 4.2 % (1.7-9.3); Neutrophils % 48.1 % (37.0-80.0); Platelet Count 275 K/mm3 (142-424); Red Cell Distribution Width 13.9 % (11.5-17.5); White Blood Count 6.3 K/mm3 (4.8-10.8)
[2023-06-04 01:36] LABS: Chloride 103 mmol/L (98-107); Potassium 3.4 mmoL/L (3.5-5.1); Sodium 139 mmol/L (136-145)
[2023-06-04 01:39] LABS: Alanine Aminotransferase 23 U/L (12-78); Albumin Level 4.4 g/dl (3.5-5.0); Albumin/Globulin Ratio 1.3 (1.1-1.8); Alkaline Phosphatase 79 U/L (38-126); Anion Gap 14.4 mEq/L (5-15); Aspartate Amino Transferase 34 U/L (14-36); Bilirubin,Total 0.4 mg/dl (0.2-1.3); Blood Urea Nitrogen 10 mg/dl (7-17); Carbon Dioxide 25 mmol/L (22.0-30.0); Creatinine Clearance Estimated 127 mL/min (50-200); Estimated Glomerular Filt Rate 95 ml/min (>60); GFR (African American) 115 ML/MIN (>60); Globulin 3.4 g/dL (1.3-3.2); Total Protein,Serum 7.8 g/dl (6.3-8.2)
[2023-06-04 01:40] LABS: Calcium 9.9 mg/dl (8.4-10.2); Glucose 101 mg/dl (74-100)
[2023-06-04 01:52] VITALS: BP 142/80; PULSE 72; RESP 20; TEMP 36.6; O2SAT 98
[2023-06-05 11:18] LABS: HIV Screen 4th Generation wRfx Non Reactive (Non Reactive)
== END 2023-06-04 01:51 | disposition home or self-care (01) ==
PROVIDERS: Emergency Provider Emergency Medicine
DX: F25.0 Schizoaffective disorder, bipolar type (principal); F43.10 Post-traumatic stress disorder, unspecified; R00.0 Tachycardia, unspecified; I45.19 Other right bundle-branch block
CPT/HCPCS: 80053; 85025; 86703; 93005; 99285; G0432

== ENCOUNTER 2024-01-09 21:41 | Emergency (ER) | payer MEDICAID, SELFPAY ==
[2024-01-09 21:51] VITALS: BP 125/88; PULSE 87; RESP 20; O2SAT 98
[2024-01-09 21:55] VITALS: BP 125/88; PULSE 97; RESP 18; TEMP 37.2; O2SAT 99; BMI 27.8
--- NOTE | 2024-01-09 22:25 | HMH.EDGENADL ---
Discharge Plan Disposition Patient Disposition: Home, Self-Care Condition: Good Prescriptions Prescriptions: New ketorolac 10 mg tablet 10 mg PO Q8H PRN (Reason: pain) 1 Days Qty: 20 0RF clindamycin HCl 300 mg capsule 300 mg PO Q8H 10 Days Qty: 30 0RF No Action sofosbuvir-velpatasvir 400-100 mg tablet 1 tab PO DAILY Qty: 28 2RF quetiapine 100 MG tablet 100 mg PO BID mirtazapine 30 MG tablet 30 mg PO DAILY buprenorphine-naloxone 1 EACH tablet, sublingual 2 each SL DAILY prednisone 20 MG tablet 20 mg PO BID Qty: 10 0RF triamcinolone acetonide 15 GM ointment 15 gm TP BID 7 Days Qty: 15 0RF Rx Instructions: .025% Referrals Follow up/Referrals: Pamela Mack APRN [Primary Care Provider] - See instructions Activity Restrictions/Add. Instructions Additional Instructions/Restrictions: You were evaluated in the emergency department today. Please pharmacy picking tech your prescription at the pharmacy and take as prescribed. You may also take Tylenol every 4-6 hours as needed in addition to this. Do not take ibuprofen with this pain medication. Follow-up closely with your primary care provider as well as with a dentist. Dr. Silvio Davis Clinical Impressions Clinical Impression: Pain, dental Instructions Patient Instructions: DI for Tooth Decay, DI for Dental Pain Discharge ED Provider: Tia Lange General Adult HPI General Chief complaint: Dental/Oral Stated complaint: dental pain Time Seen by Provider: 01/09/24 22:09 Mode of Arrival: Ambulatory Source of Information: Patient Limitations: No Limitations Description of Symptoms (Recalled from ER Triage Doc. by RN): PT reports the ED with complaints of right sided back lower tooth pain that is rated 5 out of 10 that started today. Pt statest the pain is sharp and comes and goes. Pt states that she recently had a tooth pulled on the left side and recently finished antibiotics. Pt states that she took ibuprofen at 8pm. No swelling apparent. History of Present Illness HPI narrative: This patient is a 38-year-old female with history of hepatitis C, PTSD, bipolar disorder, and multiple previous dental pain caries presenting with concern for right-sided lower tooth pain. She states that she was on antibiotics and had a tooth pulled on the left side recently, but she has since finished the antibiotics and developed right lower tooth pain. She notes that tooth had been bothering her previously, but her dentist did not do anything about it. She notes that she has had no fevers, vomiting, changes bowel movements, or other concerns. She is allergic to penicillins. Took ibuprofen at home with minimal improvement around 8 PM. Related Data Home Medications Medication Instructions Recorded Confirmed buprenorphine 8 mg-naloxone 2 mg 2 each SL DAILY ADDICTION 08/29/21 09/14/21 sublingual tablet mirtazapine 30 mg tablet 30 mg PO DAILY Anxiety 08/29/21 09/14/21 quetiapine 100 mg tablet 100 mg PO BID PTSD 08/29/21 09/14/21 Previous Rx's Medication Instructions Recorded prednisone 20 mg tablet 20 mg PO BID #10 tabs 08/29/21 triamcinolone acetonide 0.1 % 15 gm TP BID 7 days ##15 08/29/21 topical ointment sofosbuvir 400 mg-velpatasvir 100 1 tab PO DAILY #28 tabs 10/13/21 mg tablet clindamycin HCl 300 mg capsule 300 mg PO Q8H 10 days #30 caps 01/09/24 ketorolac 10 mg tablet 10 mg PO Q8H PRN pain 1 day #20 01/09/24 tabs Allergies Allergy/AdvReac Type Severity Reaction Status Date / Time ibuprofen [From Advil] Allergy Severe Swelling Verified 09/14/21 11:29 of Lip/Tongue/Throat Penicillins Allergy Mild Verified 09/14/21 11:29 shellfish derived Allergy Verified 09/14/21 11:29 [facility] Disclaimer: The information contained in this section may have been updated after the patient was seen, as this information can be updated by other users. Medical History Schizoaffective disorder, bipolar type Bipolar disorder PTSD (post-traumatic stress disorder) Social History Smoking Status: Current every day smoker tobacco type: cigarettes packs per day: 1 second hand exposure: No alcohol intake: never substance use type: former substance user and heroin current occupational status: unemployed Travel in the last 8 weeks: None household members: significant other housing: apartment number of children: 1 current occupational exposures/hazards: No caffeine: Yes ROS Obtained: Yes All systems reviewed & no additional complaints except as documented Physical Exam General General appearance: alert and in no apparent distress Head Head exam: atraumatic and normocephalic Eye Eye exam: Present normal appearance, PERRL and EOMI ENT ENT exam: Present normal oropharynx, mucous membranes moist, normal external ear exam and other (Poor dentition with multiple caries and fractures without obvious acute abscess. Tenderness to palpation of the right lower posterior molar. No trismus, drooling, facial swelling, sublingual swelling, or other concerns.) Neck Neck exam: Present normal inspection, full ROM and trachea midline; Absent tenderness Chest Chest inspection: Present normal inspection and symmetric chest wall rise; Absent tenderness Respiratory Respiratory exam: Present normal lung sounds bilaterally; Absent respiratory distress, wheezes, stridor or accessory muscle use Cardiovascular Cardiovascular exam: Present regular rate and normal rhythm Abdominal Exam Abdominal exam: Present soft; Absent distention, tenderness or guarding Extremities Exam Extremities exam: Present normal inspection, full ROM and normal capillary refill; Absent tenderness or edema Back Exam Back exam: Present normal inspection and full ROM; Absent tenderness Neurological Exam Neurological exam: Present alert, oriented X3, CN II-XII intact and normal gait; Absent motor sensory deficit Psychiatric Psychiatric exam: Present normal affect and normal mood Skin Skin exam: Present warm and dry Medical Decision Making Medical Records Medical records reviewed: Yes I reviewed the patient's medical records. Sky Inquiry Pt receiving controlled substance: No Vital Signs: 01/09/24 21:51 01/09/24 21:55 Temperature 98.9 F Temperature Source Oral Pulse Rate 87 Pulse Rate [Right Brachial] 97 H Respiratory Rate 20 18 Blood Pressure 125/88 Blood Pressure [Right Arm] 125/88 Blood Pressure Mean 100 Blood Pressure Mean [Right Arm] 100 Blood Pressure Source [Right Arm] Automatic Cuff 02 Sat by Pulse Oximetry 98 99 Oxygen Delivery Method Room Air Lab Data Lab results reviewed: Yes I reviewed the patient's lab results. Orders (Tests/Meds): ED MEDICATIONS Generic Name Dose Route Start Last Admin Trade Name Freq PRN Reason Stop Dose Admin Acetaminophen 1,000 mg 01/09/24 22:23 Acetaminophen 500mg Tab PO 01/09/24 22:24 ONCE ONE Discontinued Medications Generic Name Dose Route Start Last Admin Trade Name Freq PRN Reason Stop Dose Admin Hydrocodone Bitart/Acetaminophen 2 tab 01/09/24 22:19 Hydrocodone/Apap 5/325 Mg Tablet PO 01/09/24 22:20 ONCE ONE Clindamycin HCl 300 mg 01/09/24 22:19 Clindamycin 150mg Capsule PO 01/09/24 22:20 ONCE ONE Ketorolac Tromethamine 30 mg 01/09/24 22:19 Ketorolac 30mg/Ml Vial IM 01/09/24 22:20 ONCE ONE Lidocaine HCl 15 ml 01/09/24 22:19 Lidocaine 2% Viscous Autumn 15ml Udc PO 01/09/24 22:20 ONCE ONE Medical Decision Narrative: In summary, this patient is a 38-year-old female presenting to the Emergency Department for evaluation of dental pain. Differential diagnoses considered include but are not limited to dental fracture, dental caries, dental decay, dental abscess. Ruling out the most morbid conditions drove assessment. On exam, the patient is in no acute distress no appreciable facial swelling, no trismus, no drooling, no sublingual swelling, and no appreciable drainable abscesses. At this time, feel she would benefit from pain control, antibiotics, and close follow-up with a dentist. I do not feel the labs or imaging would global climate change researcher. Patient was given oral clindamycin, given that she has a penicillin allergy, as well as IM Toradol, dental balls, and oral Tylenol presented medic improvement. Patient was given instructions to close a patient follow-up with dentistry, strict return precautions, and prescriptions for Toradol and clindamycin. She was discharged after all questions were answered with very strict return precautions. Critical Care Critical Care Time Critical Care Time: No
[2024-01-09] MEDS: KETOROLAC 30MG/ML VIAL 30 MG IM (22:30)
[2024-01-09] MEDS: ACETAMINOPHEN 500MG TAB 1000 MG PO (22:30)
[2024-01-09] MEDS: CLINDAMYCIN 150MG CAPSULE 300 MG PO (22:30)
[2024-01-09] MEDS: LIDOCAINE 2% VISCOUS SOL 15ML UDC 15 ML PO (22:30)
[2024-01-09 22:44] VITALS: BP 131/90; PULSE 90; RESP 18; TEMP 36.8; O2SAT 99
== END 2024-01-09 22:48 | disposition home or self-care (01) ==
PROVIDERS: Emergency Provider Emergency Medicine; PCP Nurse Practitioner Family
DX: K08.89 Other specified disorders of teeth and supporting structures (principal); F17.210 Nicotine dependence, cigarettes, uncomplicated
CPT/HCPCS: 99283

== ENCOUNTER 2024-01-20 15:40 | Emergency (ER) | payer MEDICAID, SELFPAY ==
[2024-01-20 16:05] VITALS: BP 129/84; PULSE 90; RESP 20; TEMP 36.6; O2SAT 100; BMI 31.4
--- NOTE | 2024-01-20 16:29 | ED_ITS ---
Discharge Plan Disposition Patient Disposition: Home, Self-Care Condition: Good Prescriptions Prescriptions: New triamcinolone acetonide 0.1 % ointment 1 applic topical TID Qty: 30 0RF Rx Instructions: apply to rash as prescribed methylprednisolone [Medrol ([place])] 4 mg tablets,dose pack See Rx Instructions .Route .COMPLEX 6 Days Qty: 21 0RF Rx Instructions: taper pack; No Action sofosbuvir-velpatasvir 400-100 mg tablet 1 tab PO DAILY Qty: 28 2RF quetiapine 100 MG tablet 100 mg PO BID mirtazapine 30 MG tablet 30 mg PO DAILY buprenorphine-naloxone 1 EACH tablet, sublingual 2 each SL DAILY prednisone 20 MG tablet 20 mg PO BID Qty: 10 0RF triamcinolone acetonide 15 GM ointment 15 gm TP BID 7 Days Qty: 15 0RF Rx Instructions: .025% ketorolac 10 mg tablet 10 mg PO Q8H PRN (Reason: pain) 1 Days Qty: 20 0RF clindamycin HCl 300 mg capsule 300 mg PO Q8H 10 Days Qty: 30 0RF Referrals Follow up/Referrals: Pamela Mack APRN [Primary Care Provider] - See instructions Activity Restrictions/Add. Instructions Additional Instructions/Restrictions: Start oral steriods tomorrow Use topical ointment apply directly to rash but do not use on face Follow up with your Family Doctor if no improvement Clinical Impressions Clinical Impression: Rash Stand Alone Forms Stand Alone Forms: Work/School Release Instructions Patient Instructions: DI for Rash Discharge ED Provider: Sharlene Dos Santos [facility] General Stated complaint: rash Mode of Arrival: Ambulatory Source of Information: Patient Limitations: No Limitations Time Seen by Provider: 01/20/24 16:29 Description of Symptoms (Recalled from Triage Doc. by RN): PATIENT C/O RASH TO ARMS AND NECK SINCE YESTERDAY HEENT Symptoms (Recalled from RN notes): No Resp Symptoms (Recalled from RN notes): No Skin Symptoms (Recalled from RN notes): Yes MS Symptoms (Recalled from RN notes): No Functional Status (Recalled from RN notes): WNL History of Present Illness Provider Complaint: Patient states that she has sensative skin and she thinks she may have got into something that she is allergic too States that she noticed a rash on her hands, arms and neck area after her significant other cleaned the air unit yesterday that is itchy States that she came in to get it checked and get something to help clear it up Related Data Home Medications Medication Instructions Recorded Confirmed buprenorphine 8 mg-naloxone 2 mg 2 each SL DAILY ADDICTION 08/29/21 09/14/21 sublingual tablet mirtazapine 30 mg tablet 30 mg PO DAILY Anxiety 08/29/21 09/14/21 quetiapine 100 mg tablet 100 mg PO BID PTSD 08/29/21 09/14/21 Previous Rx's Medication Instructions Recorded prednisone 20 mg tablet 20 mg PO BID #10 tabs 08/29/21 triamcinolone acetonide 0.1 % 15 gm TP BID 7 days ##15 08/29/21 topical ointment sofosbuvir 400 mg-velpatasvir 100 1 tab PO DAILY #28 tabs 10/13/21 mg tablet clindamycin HCl 300 mg capsule 300 mg PO Q8H 10 days #30 caps 01/09/24 ketorolac 10 mg tablet 10 mg PO Q8H PRN pain 1 day #20 01/09/24 tabs methylprednisolone 4 mg tablets in See Rx Instructions .Route 01/20/24 a dose pack (Medrol ([place])) .COMPLEX 6 days #21 tabs triamcinolone acetonide 0.1 % 1 applic topical TID #30 grams 01/20/24 topical ointment Allergies Allergy/AdvReac Type Severity Reaction Status Date / Time Penicillins Allergy Mild Verified 09/14/21 11:29 shellfish derived Allergy Verified 09/14/21 11:29 Worker's Comp Is this a Worker's Comp case?: No [facility] Disclaimer: The information contained in this section may have been updated after the patient was seen, as this information can be updated by other users. Medical History Schizoaffective disorder, bipolar type Bipolar disorder PTSD (post-traumatic stress disorder) Social History Smoking Status: Current every day smoker tobacco type: cigarettes packs per day: 1 second hand exposure: No alcohol intake: never substance use type: former substance user and heroin current occupational status: unemployed Travel in the last 8 weeks: None household members: significant other housing: apartment number of children: 1 current occupational exposures/hazards: No caffeine: Yes ROS Obtained: Yes All systems reviewed & no additional complaints except as documented and Yes Systems reviewed as appropriate & no additional complaints except as documented Constitutional Constitutional: Reports system reviewed and no additional complaints, except as documented, Reports as per HPI and Denies fever(s) ENT Ears, Nose, Mouth, and Throat: Reports system reviewed and no additional complaints, except as documented and Reports as per HPI Cardiovascular Cardiovascular: Reports system reviewed and no additional complaints, except as documented and Reports as per HPI Respiratory Respiratory: Reports system reviewed and no additional complaints, except as documented and Reports as per HPI Gastrointestinal Gastrointestingal: Reports system reviewed and no additional complaints, except as documented and as per HPI Integumentary/Breasts Skin/Breast: Reports system reviewed and no additional complaints, except as documented, Reports as per HPI, Reports pruritus and Reports rash Physical Exam General General appearance: alert and in no apparent distress ENT ENT exam: Present mucous membranes moist Respiratory Respiratory exam: Present normal lung sounds bilaterally; Absent respiratory distress or wheezes Cardiovascular Cardiovascular exam: Present regular rate, normal rhythm and normal heart sounds Neurological Exam Neurological exam: Present alert and oriented X3 Skin Skin exam: Present rash (fine red raised rash noted on hands and neck appears like contact dermatitis) Medical Decision Making Sky Inquiry Pt receiving controlled substance: No Sky was queried for this patient: No Vital Signs: 01/20/24 16:05 Temperature 97.9 F Temperature Source Oral Pulse Rate [Left Brachial] 90 Respiratory Rate 20 Blood Pressure [Left Arm] 129/84 Blood Pressure Mean [Left Arm] 99 Blood Pressure Source [Left Arm] Automatic Cuff Blood Pressure Position [Left Arm] Sitting 02 Sat by Pulse Oximetry 100 Oxygen Delivery Method Room Air
[2024-01-20] MEDS: METHYLPREDNISOLONE SOD SUCC 125MG VIAL 125 MG IM (16:45)
[2024-01-20 16:55] VITALS: BP 129/84; PULSE 90; RESP 20; TEMP 36.6; O2SAT 100
== END 2024-01-20 17:04 | disposition home or self-care (01) ==
PROVIDERS: Emergency Provider Nurse Practitioner; PCP Nurse Practitioner Family
DX: L25.9 Unspecified contact dermatitis, unspecified cause (principal)
CPT/HCPCS: 96372; 99212; 99214; G0463

== ENCOUNTER 2024-03-16 23:45 | Emergency (ER) | payer MEDICAID, SELFPAY ==
[2024-03-16 23:49] VITALS: BP 171/119; PULSE 108; RESP 19; TEMP 36.7; O2SAT 100; BMI 34.9
--- NOTE | 2024-03-16 23:58 | ED_ITS ---
Discharge Plan Disposition Patient Disposition: Home, Self-Care Prescriptions Prescriptions: New prednisone 50 mg tablet 50 mg PO DAILY 5 Days Qty: 5 0RF No Action sofosbuvir-velpatasvir 400-100 mg tablet 1 tab PO DAILY Qty: 28 2RF quetiapine 100 MG tablet 100 mg PO BID mirtazapine 30 MG tablet 30 mg PO DAILY buprenorphine-naloxone 1 EACH tablet, sublingual 2 each SL DAILY prednisone 20 MG tablet 20 mg PO BID Qty: 10 0RF triamcinolone acetonide 15 GM ointment 15 gm TP BID 7 Days Qty: 15 0RF Rx Instructions: .025% triamcinolone acetonide 0.1 % ointment 1 applic topical TID Qty: 30 0RF Rx Instructions: apply to rash as prescribed methylprednisolone [Medrol ([place])] 4 mg tablets,dose pack See Rx Instructions .Route .COMPLEX 6 Days Qty: 21 0RF Rx Instructions: taper pack; ketorolac 10 mg tablet 10 mg PO Q8H PRN (Reason: pain) 1 Days Qty: 20 0RF clindamycin HCl 300 mg capsule 300 mg PO Q8H 10 Days Qty: 30 0RF Referrals Follow up/Referrals: Haylee Upton MD [Referring] - See instructions Pamela Mack APRN [Primary Care Provider] - See instructions Activity Restrictions/Add. Instructions Additional Instructions/Restrictions: Please take hydroxyzine as needed for itching. Please take steroids as prescribed. Please follow-up with your PCP and try to get in with our sample tester, Dr. Upton. Clinical Impressions Clinical Impression: Generalized pruritus Instructions Patient Instructions: DI for Skin Abscess Discharge ED Provider: Fabrizio Houser General Adult HPI General Chief complaint: Skin/Abscess/Foreign Body Stated complaint: allergic reation,itching,swelling on shoulders Time Seen by Provider: 03/16/24 23:50 History of Present Illness HPI narrative: 38-year-old female history of hepatitis C, prior drug use, bipolar/schizoaffective disorder, presents with acute on chronic generalized pruritus. She reports that she has been dealing with this on and off for the last 10 years. Nothing seems to set it off. She reports that she just sometimes gets itchy all over. She denies any skin changes when she gets itchy such as rash or lesions. She denies any changes in medications. She denies any changes in detergents or new environmental exposures. She was seen here last month and was given a Medrol Dosepak which seemed to improve her symptoms. She has seen a sample tester in the past but not in the last few years. Related Data Home Medications Medication Instructions Recorded Confirmed buprenorphine 8 mg-naloxone 2 mg 2 each SL DAILY ADDICTION 08/29/21 09/14/21 sublingual tablet mirtazapine 30 mg tablet 30 mg PO DAILY Anxiety 08/29/21 09/14/21 quetiapine 100 mg tablet 100 mg PO BID PTSD 08/29/21 09/14/21 Previous Rx's Medication Instructions Recorded prednisone 20 mg tablet 20 mg PO BID #10 tabs 08/29/21 triamcinolone acetonide 0.1 % 15 gm TP BID 7 days ##15 08/29/21 topical ointment sofosbuvir 400 mg-velpatasvir 100 1 tab PO DAILY #28 tabs 10/13/21 mg tablet clindamycin HCl 300 mg capsule 300 mg PO Q8H 10 days #30 caps 01/09/24 ketorolac 10 mg tablet 10 mg PO Q8H PRN pain 1 day #20 01/09/24 tabs methylprednisolone 4 mg tablets in See Rx Instructions .Route 01/20/24 a dose pack (Medrol ([place])) .COMPLEX 6 days #21 tabs triamcinolone acetonide 0.1 % 1 applic topical TID #30 grams 01/20/24 topical ointment prednisone 50 mg tablet 50 mg PO DAILY 5 days #5 tabs 03/17/24 Allergies Allergy/AdvReac Type Severity Reaction Status Date / Time Penicillins Allergy Mild Verified 09/14/21 11:29 shellfish derived Allergy Verified 09/14/21 11:29 [facility] Disclaimer: The information contained in this section may have been updated after the patient was seen, as this information can be updated by other users. Medical History Schizoaffective disorder, bipolar type Bipolar disorder PTSD (post-traumatic stress disorder) Social History Smoking Status: Current every day smoker tobacco type: cigarettes packs per day: 1 second hand exposure: No alcohol intake: never substance use type: former substance user and heroin current occupational status: unemployed Travel in the last 8 weeks: None household members: significant other housing: apartment number of children: 1 current occupational exposures/hazards: No caffeine: Yes ROS Obtained: Yes All systems reviewed & no additional complaints except as documented Physical Exam General General appearance: alert and in no apparent distress Head Head exam: atraumatic and normocephalic Eye Eye exam: Present normal appearance, PERRL and EOMI ENT ENT exam: Present normal oropharynx and normal external ear exam Neck Neck exam: Present normal inspection and full ROM Chest Chest inspection: Present normal inspection and symmetric chest wall rise; Absent tenderness Respiratory Respiratory exam: Present normal lung sounds bilaterally; Absent respiratory distress Cardiovascular Cardiovascular exam: Present regular rate and normal rhythm Abdominal Exam Abdominal exam: Present soft; Absent distention, tenderness or guarding Extremities Exam Extremities exam: Present normal inspection; Absent edema or joint swelling Back Exam Back exam: Present normal inspection; Absent tenderness Neurological Exam Neurological exam: Present alert and oriented X3; Absent motor sensory deficit Psychiatric Psychiatric exam: Present normal affect and normal mood Skin Skin exam: Present warm, dry and normal color Lymphatic Lymphatic Findings: no adenopathy Medical Decision Making Medical Records Medical records reviewed: Yes I reviewed the patient's medical records. Sky Inquiry Pt receiving controlled substance: No Sky was queried for this patient: No Vital Signs: 03/16/24 23:49 03/17/24 00:16 Temperature 98.1 F 97.9 F Temperature Source Oral Oral Pulse Rate 89 Pulse Rate [Left Radial] 108 H Respiratory Rate 19 16 Blood Pressure 149/99 H Blood Pressure [Right Arm] 171/119 H Blood Pressure Mean [Right Arm] 136 Blood Pressure Source Automatic Cuff Blood Pressure Source [Right Arm] Automatic Cuff Blood Pressure Position Sitting Blood Pressure Position [Right Arm] Sitting 02 Sat by Pulse Oximetry 100 Oxygen Delivery Method Room Air Room Air Lab Data Lab results reviewed: Yes I reviewed the patient's lab results. Orders (Tests/Meds): ED MEDICATIONS Discontinued Medications Generic Name Dose Route Start Last Admin Trade Name Freq PRN Reason Stop Dose Admin Prednisone 40 mg 03/17/24 00:24 03/17/24 00:27 Prednisone 20mg Tab PO 03/17/24 00:25 40 mg ONCE ONE Administration Medical Decision Narrative: 38-year-old female presents with acute on chronic generalized pruritus.. History was obtained interactive discussion with patient. On arrival, patient is [afebrile, hemodynamically stable, satting appropriately, alert, oriented x4, GCS 15], moving all extremities spontaneously. Full physical exam performed and significant for no skin lesions rash etc. No scleral icterus or yellowing of the skin to suggest hyperbilirubinemia. Differential includes but is not limited to dermatologic condition, hyperbilirubinemia, psychiatric condition, renal dysfunction. Blood work was considered but administered given chronicity of symptoms and normal physical exam. Given patient reported improvement with steroids last month, I prescribed her a short course of prednisone upon discharge. Recommended that she follow-up with her PCP and with her sample tester. Procedures Risk/Benefits of Procedure(s) Were Explained: Yes Critical Care Critical Care Time Critical Care Time: No
[2024-03-17 00:16] VITALS: BP 149/99; PULSE 89; RESP 16; TEMP 36.6; O2SAT 100
[2024-03-17] MEDS: predniSONE 20MG TAB 40 MG PO (00:27)
== END 2024-03-17 00:28 | disposition home or self-care (01) ==
PROVIDERS: Emergency Provider Emergency Medicine; PCP Nurse Practitioner Family
DX: L29.9 Pruritus, unspecified (principal); F17.210 Nicotine dependence, cigarettes, uncomplicated; F25.0 Schizoaffective disorder, bipolar type
CPT/HCPCS: 99283

== ENCOUNTER 2024-04-16 07:20 | Outpatient (CLI) | payer MEDICAID, SELFPAY | END 2024-04-16 23:59 | disposition home or self-care (01) | LOC: LAB.DROPOF 04-18 07:21 | PROVIDERS: PCP Family Medicine; Visit Provider Family Medicine | DX: B37.9 Candidiasis, unspecified (principal) | CPT/HCPCS: 87210 ==

== ENCOUNTER 2024-06-04 20:00 | Outpatient (CLI) | payer MEDICAID, SELFPAY ==
[2024-06-04 21:04] LABS: Basophils % 0.2 % (0.1-2.0); Eosinophils % 0.1 % (0.1-12.0); Hematocrit 44.6 % (37.0-47.0); Hemoglobin 13.7 g/dL (12.2-16.2); Lymphocytes # 1.3 K/mm3 (0.7-4.5); Lymphocytes % 13.6 % (10-50); Mean Corpuscular HGB Conc 30.7 g/dL (31.8-35.4); Mean Corpuscular Hemoglobin 29.2 pg (27.0-31.2); Mean Corpuscular Volume 95.1 fl (81-99); Mean Platelet Volume 8.3 fl (7.4-10.4); Monocytes # 0.3 K/mm3 (0.1-1.0); Monocytes % 3.5 % (1.7-9.3); Neutrophils # 7.6 K/mm3 (1.8-7.8); Neutrophils % 82.6 % (37.0-80.0); Platelet Count 422 K/mm3 (142-424); Red Blood Count 4.69 M/mm3 (4.20-5.40); Red Cell Distribution Width 13.8 % (11.5-17.5); White Blood Count 9.2 K/mm3 (4.8-10.8)
[2024-06-04 21:22] LABS: Alanine Aminotransferase 28 U/L (12-78); Albumin Level 4.8 g/dl (3.5-5.0); Albumin/Globulin Ratio 1.5 (1.1-1.8); Alkaline Phosphatase 57 U/L (38-126); Anion Gap 15.3 mEq/L (5-15); Aspartate Amino Transferase 32 U/L (14-36); Bilirubin,Total 0.5 mg/dl (0.2-1.3); Blood Urea Nitrogen 13 mg/dl (7-17); Calcium 9.8 mg/dl (8.4-10.2); Carbon Dioxide 24 mmol/L (22.0-30.0); Chloride 102 mmol/L (98-107); Cholesterol 184 mg/dl (140-200); Estimated Glomerular Filt Rate 94 ml/min (>60); GFR (African American) 114 ML/MIN (>60); Globulin 3.3 g/dL (1.3-3.2); Glucose 71 mg/dl (74-100); HDL Cholesterol 90 mg/dl (40-60); Potassium 4.3 mmoL/L (3.5-5.1); Sodium 137 mmol/L (136-145); Total Protein,Serum 8.1 g/dl (6.3-8.2); Triglycerides 60 mg/dl (30-150); VLDL Cholesterol 12 mg/dL (0-40)
[2024-06-04 21:33] LABS: Direct LDL Cholesterol 64.42 mg/dL (100-129)
[2024-06-04 21:39] LABS: 25-OH Vitamin D, Total 18.3 ng/mL (30-100)
[2024-06-04 21:53] LABS: Thyroid Stimulating Hormone 0.61 uIU/mL (0.465-4.68)
[2024-06-04 21:55] LABS: HIV (1&2) Antibody Rapid NONREACTIVE (NONREACTIVE)
[2024-06-04 22:06] LABS: Hemoglobin A1C 5.6 % (4.0-6.0)
[2024-07-30 15:56] LABS: HCV Ab REACTIVE
== END 2024-06-04 23:59 | disposition home or self-care (01) ==
LOC: LAB.DROPOF 20:02
PROVIDERS: PCP Family Medicine; Visit Provider Family Medicine
DX: R10.9 Unspecified abdominal pain (principal); B18.2 Chronic viral hepatitis C; Z76.89 Persons encountering health services in other specified circumstances; L29.9 Pruritus, unspecified; R21 Rash and other nonspecific skin eruption; L30.9 Dermatitis, unspecified
CPT/HCPCS: 80050; 80053; 80061; 82306; 83036; 84443; 85025; 86803; 87389